=== PATIENT | female | born 1990 | race Caucasian/White ===

== ENCOUNTER 2016-08-09 18:46 | Emergency (ER) | payer OTHER ==
[~2016-08-09] VITALS: Ht 170.2 cm; Wt 86.0 kg
[~2016-08-09 18:46] MED LIST: ACET-1311 PO; METH4PAK4 PO; ONDA4TAB10 SL
[2016-08-09 18:54] VITALS: Ht 170.2 cm; Wt 86.0 kg
[2016-08-09] MEDS ORDERED: SODIUM CHLORIDE 0.9% 1000ML 1,000 ML IV STA (19:55)
[2016-08-09] MEDS ORDERED: ONDANSETRON 8 MG/54 ML D5W IV STA (20:05)
[2016-08-09] MEDS ORDERED: HYDROmorphone INJ 0.5 MG/0.5 ML SYR IV STA (20:05)
[2016-08-09] MEDS ORDERED: OPTIRAY 320 IV PRN (20:15)
[2016-08-09 20:21] LABS: BASO % 0.2 %; BASO ABS # 0.02 K/uL (0-0.2); COMPLETE YES; EOS % 0.6 %; HEMATOCRIT 43.2 % (37-47); IG% 0.2 %; LYMPH % 10.6 %; LYMPH ABS # 1.33 K/uL (1.2-3.4); MEAN CELL VOLUME 84.9 fL (80-100); MEAN CORPUSCULAR HEMOGLOBIN 29.7 pg (25-34); MEAN PLATELET VOLUME 9.1 fL (7.4-10.4); NEUT % 82.4 %; PLATELET COUNT 279 K/uL (130-400); RED BLOOD COUNT 5.09 M/uL (4.2-5.4); WHITE BLOOD COUNT 12.58 K/uL (4.8-10.8)
[2016-08-09 20:37] LABS: BUN/CREATININE RATIO 12.3 (10-20); CALCIUM 8.9 mg/dl (8.5-10.1); CREATININE 0.75 mg/dl (0.60-1.20); POTASSIUM 3.8 mmol/L (3.5-5.1)
[2016-08-09] MEDS ORDERED: FERR324T4 PO (20:53)
[2016-08-09] MEDS ORDERED: PRED20TA PO (21:53)
[2016-08-09] MEDS ORDERED: ONDANSETRON HOME PACK 4MG OD TAB PO ONE (22:00)
[2016-08-09 22:02] VITALS: BP 106/73; PULSE 75; TEMP 36.8; O2SAT 97
[2016-08-09 22:19] LABS: URINE APPEARANCE CLEAR (CLEAR); URINE BILIRUBIN NEG (NEG); URINE COLOR YELLOW; URINE EPITHELIAL CELL AUTO >30 /lpf (0-5); URINE NITRITE NEG (NEG); URINE SPECIFIC GRAVITY 1.025 (1.000-1.030); UROBILINOGEN NEG (NEG); ZZUR CULT IF INDIC CLEAN CATCH YES
[2016-08-09 22:26] LABS: MANUAL MICROSCOPIC REQUIRED? NO; REVIEW REQ? NO
--- NOTE | 2016-08-09 23:28 | EMERGENCY ROOM VISIT NOTE ---
History Report prepared by Allison: Amanda Medley Under the Supervision of: Dr. Thuan Patel M.D. First contact with patient: 19:53 Chief Complaint: GI ASSESSMENT Stated Complaint: CHRONS FLARE,VOMITING Nursing Triage Summary: pt reports hx of Crohns disease and " I am having a flare up" History of Present Illness The patient is a 25 year old female who presents to the Emergency Room with complaints of intermittent upper abdominal pain beginning today. She rates her pain as 9.5/10 in severity. The patient describes her pain as a stabbing sensation. She notes that for the past 7 years she has had Crohn's disease. Her symptoms are typical for when she experiences a flare up. The patient is also experiencing nausea and vomiting. She notes that she has been off medication for the past year. Pt denies LOC, headache, fevers, chills, diaphoresis, visual changes, neck pain, chest pain, breathing difficulties, back pain, melena, hematochezia, urinary symptoms, numbness, weakness, lymphadenopathy, rash, or other complaints. Source of History: patient Onset: today Position: abdomen (upper) Quality: stabbing Timing: intermittent Associated Symptoms: + nausea, + vomiting Note: Patient is experiencing a Crohn's disease flare up. Review of Systems See HPI for pertinent positives and negatives. A total of ten systems were reviewed and were otherwise negative. Past Medical & Surgical Medical Problems: (1) Constipation (2) Crohns disease Surgical Problems: (1) No history of previous surgery Family History No significant family history Social History Smoking Status: Never Smoker Alcohol Use: occasionally Marital Status: Occupation Status: employed Current/Historical Medications Scheduled Ferrous Sulfate (Ferrous Sulfate), Unknown Dose PO DAILY Prednisone (Prednisone), 0 PO DAILY Allergies Coded Allergies: No Known Allergies (Unverified , 08/09/16) Physical Exam Vital Signs Date Time Temp Pulse Resp B/P Pulse Ox O2 Delivery O2 Flow Rate FiO2 08/09/16 22:02 36.8 75 18 106/73 97 08/09/16 21:51 75 18 106/73 97 Room Air 08/09/16 21:03 73 08/09/16 20:21 83 18 115/72 97 Room Air 08/09/16 18:54 36.8 91 18 138/86 96 Room Air Physical Exam GENERAL: Awake, alert, well-appearing, in no distress HENT: Normocephalic, atraumatic. Oropharynx unremarkable. EYES: Normal conjunctiva. Sclera non-icteric. NECK: Supple. No nuchal rigidity. FROM. No JVD. RESPIRATORY: Clear to auscultation. CARDIAC: Regular rate, normal rhythm. Extremities warm and well perfused. Pulses equal. ABDOMEN: Soft, non-distended. Left upper and lower tenderness to palpation. No rebound or guarding. No masses. RECTAL: Deferred. MUSCULOSKELETAL: Chest examination reveals no tenderness. The back is symmetrical on inspection without obvious abnormality. There is no CVA tenderness to palpation. No joint edema. LOWER EXTREMITIES: Calves are equal size bilaterally and non-tender. No edema. No discoloration. NEURO: Normal sensorium. No sensory or motor deficits noted. SKIN: No rash or jaundice noted. Medical Decision & Procedures Laboratory Results 08/09/16 20:13 Red Blood Count 5.09, Mean Corpuscular Volume 84.9, Mean Corpuscular Hemoglobin 29.7, Mean Corpuscular Hemoglobin Concent 35.0, Mean Platelet Volume 9.1, Neutrophils (%) (Auto) 82.4, Lymphocytes (%) (Auto) 10.6, Monocytes (%) (Auto) 6.0, Eosinophils (%) (Auto) 0.6, Basophils (%) (Auto) 0.2, Neutrophils # (Auto) 10.37, Lymphocytes # (Auto) 1.33, Monocytes # (Auto) 0.76, Eosinophils # (Auto) 0.08, Basophils # (Auto) 0.02 08/09/16 20:13 Test 08/09/16 20:13 08/09/16 21:55 White Blood Count 12.58 K/uL (4.8-10.8) Red Blood Count 5.09 M/uL (4.2-5.4) Hemoglobin 15.1 g/dL (12.0-16.0) Hematocrit 43.2 % (37-47) Mean Corpuscular Volume 84.9 fL (80-100) Mean Corpuscular Hemoglobin 29.7 pg (25-34) Mean Corpuscular Hemoglobin Concent 35.0 g/dl (32-36) Platelet Count 279 K/uL (130-400) Mean Platelet Volume 9.1 fL (7.4-10.4) Neutrophils (%) (Auto) 82.4 % Lymphocytes (%) (Auto) 10.6 % Monocytes (%) (Auto) 6.0 % Eosinophils (%) (Auto) 0.6 % Basophils (%) (Auto) 0.2 % Neutrophils # (Auto) 10.37 K/uL (1.4-6.5) Lymphocytes # (Auto) 1.33 K/uL (1.2-3.4) Monocytes # (Auto) 0.76 K/uL (0.11-0.59) Eosinophils # (Auto) 0.08 K/uL (0-0.5) Basophils # (Auto) 0.02 K/uL (0-0.2) RDW Standard Deviation 41.0 fL (36.4-46.3) RDW Coefficient of Variation 13.2 % (11.5-14.5) Immature Granulocyte % (Auto) 0.2 % Immature Granulocyte # (Auto) 0.02 K/uL (0.00-0.02) Anion Gap 6.0 mmol/L (3-11) Est Creatinine Clear Calc Drug Dose 126.9 ml/min Estimated GFR () 126.6 Estimated GFR (Non- 109.2 BUN/Creatinine Ratio 12.3 (10-20) Calcium Level 8.9 mg/dl (8.5-10.1) Total Bilirubin 0.5 mg/dl (0.2-1) Direct Bilirubin 0.2 mg/dl (0-0.2) Aspartate Amino Transf (AST/SGOT) 15 U/L (15-37) Alanine Aminotransferase (ALT/SGPT) 20 U/L (12-78) Alkaline Phosphatase 58 U/L (45-117) Total Protein 7.8 gm/dl (6.4-8.2) Albumin 3.7 gm/dl (3.4-5.0) Lipase 232 U/L (73-393) Urine Color YELLOW Urine Appearance CLEAR (CLEAR) Urine pH 8.0 (4.5-7.5) Urine Specific [place] 1.025 (1.000-1.030) Urine Protein NEG (NEG) Urine Glucose (UA) NEG (NEG) Urine Ketones NEG (NEG) Urine Occult Blood NEG (NEG) Urine Nitrite NEG (NEG) Urine Bilirubin NEG (NEG) Urine Urobilinogen NEG (NEG) Urine Leukocyte Esterase TRACE (NEG) Urine WBC (Auto) 1-5 /hpf (0-5) Urine RBC (Auto) 0-4 /hpf (0-4) Urine Hyaline Casts (Auto) 1-5 /lpf (0-5) Urine Epithelial Cells (Auto) >30 /lpf (0-5) Urine Bacteria (Auto) 1+ (NEG) Urine Test NEG (NEG) Laboratory results reviewed by me Medications Administered Medications (Trade) Dose Ordered Sig/Marcelo Route Start Time Stop Time Status Last Admin Dose Admin Sodium Chloride (Nss 1000ml) 1,000 ml @ 999 mls/hr Q1H1M STAT IV 08/09/16 19:55 08/09/16 20:55 DC 08/09/16 20:16 999 MLS/HR Ondansetron HCl (Zofran 8mg Iv) 8 mg NOW STAT IV 08/09/16 20:05 08/09/16 20:07 DC 08/09/16 20:16 8 MG Hydromorphone HCl (Dilaudid Inj) 0.5 mg Q20M STAT IV 08/09/16 20:05 08/09/16 20:07 DC 08/09/16 20:16 0.5 MG Prednisone (PredniSONE TAB) 60 mg NOW STAT PO 08/09/16 21:44 08/09/16 21:45 DC 08/09/16 21:54 60 MG Ondansetron HCl (ZOFRAN ODT 4MG Home Pack) 1 homepack UD ONCE PO 08/09/16 22:00 08/09/16 22:01 DC 08/09/16 21:54 1 HOMEPACK ED Course 1994: Sodium Chloride 1,000 ml @ 999 mls/hr IV. 2002: The patient was evaluated in room B11. A complete history and physical exam was performed. 2004: Dilaudid Inj 0.5 mg IV, Zofran 8 mg IV. 2143: Prednisone Tab 60 mg PO. 2148: I reevaluated the patient. She would like nausea and Prednisone medication to go home with. She will follow up with her GI doctor in [place] tomorrow. I did discuss the risks and benefits of imaging, she does not want any done at this time. 2199: Zofran ODT 4 mg Home Pack 1 homepack PO. 2203: I reevaluated the patient. Discussed results and discharge instructions: She verbalized understanding and agreement. The patient is ready for discharge. Medical Decision Triage Nursing notes reviewed. The patient's presentation and history were concerning for abdominal pain. Etiologies such as inflammatory bowel disease, appendicitis, diverticulitis, obstruction, renal colic, PUD, biliary pathology, pancreatitis, mesenteric ischemia, aortic pathology, infections, genitourinary, UTI, perforated viscus, as well as others were entertained. The patient was evaluated. She has a history of inflammatory bowel disease. She notes having a flare. Record review indicates she was here February of last year for similar issues. The patient had blood work obtained. CT scan was ordered. The patient declined CT imaging stating that she has had multiple CT scans in the past and would like to avoid the radiation. She had a smoker presentation in February of last year and imaging was deferred for the same reason. The patient had a mild leukocytosis but this was less than prior. Chemistry panel, LFTs and lipase were unremarkable. Urine dip was negative. The patient is not . She was treated as above and felt somewhat better. She requested steroids and noted a prednisone taper helps her more than anything. She accepted some nausea medicine but did not want any narcotics stating that she has problems with constipation. Record review of the PD MP did not reveal any evidence of issues. The patient was offered consultation with gastroenterology but wants to follow-up with her own chief meteorologist. She was referred to [facility] gastroenterology on the last visit but declined that as well. She followed up with her GI doctor that's been treating her since diagnosis. The patient will contact the office tomorrow. I did provide her prednisone taper by prescription. Patient was fully aware of the risks of declining imaging and possible outcomes of other pathology mimicking her inflammatory bowel disease.I gave my usual and customary discussion regarding this issue. By the evaluation outlined above other emergent etiologies such as those listed in the differential, as well as others, were deemed relatively unlikely. The patient and significant other were informed about the findings as listed above. All questions were answered and they were pleased with the treatment. Return instructions were outlined and the patient was discharged in stable condition. The patient was referred to her GI doctor for follow-up YUNG for a recheck of the current condition. The chart was completed utilizing [employer] voice recognition software. Grammatical errors, random word insertions, pronoun errors, and incomplete sentences are an occasional consequence of this system due to software limitations, ambient noise, and hardware issues. Any formal questions or concerns about the content, text, or information contained within the body of this dictation should be directly addressed to the physician for clarification. [place] Drug Monitoring Program Search Results: patient reviewed within database, no issues identified Impression Primary Impression: Generalized abdominal pain Additional Impression: History of Crohn's disease Scribe Attestation The scribe's documentation has been prepared under my direction and personally reviewed by me in its entirety. I confirm that the note above accurately reflects all work, treatment, procedures, and medical decision making performed by me. Departure Information Dispostion Home / Self-Care Prescriptions Prednisone (Prednisone) 20 Mg Tab 0 PO DAILY, #15 TAB 3 DAILY FOR 3 DAYS, THEN 2 DAILY FOR 2 DAYS, THEN 1 DAILY FOR 1 DAY, THEN 1/2 FOR 2 DAYS. Prov: Thuan Patel MD 08/09/16 Referrals No Doctor, Assigned (PCP) Forms HOME CARE DOCUMENTATION FORM, IMPORTANT VISIT INFORMATION Patient Instructions My [facility] Additional Instructions ABDOMINAL PAIN INSTRUCTIONS: DO NOT drive, drink alcohol, operate machinery, or perform dangerous activities today. You were given medications in the ER that can affect your ability to safely function or operate a vehicle. Prednisone 20 mg: Take 3 pills a day for 3 days, then take 2 pills a day for 2 days, then take one pill a day for one day, then take one half pill for two days. Acetaminophen(Tylenol) may be used for fever or pain. Use 1000mg every six hours as needed. Avoid using more than 4000mg in a 24 hour period. Zofran 4 mg oral dissolving tablets: take one tablet and allow it to melt in your mouth every 4 hours as needed for nausea. Rest and drink plenty of fluids as tolerated. Slow sips of water or sports drinks are recommended instead of large amounts all at once. Continue current medications. Once your stomach is settled start with a clear liquid diet (jello, soup broth, etc.) and then advance as tolerated. You should avoid full, heavy meals for about 24 hrs from the time your symptoms resolved. Return to the ER immediately for worsening or persistent abdominal pain, vomiting, fevers, chest pains, difficulty breathing, black or bloody stools, worsening of your condition, or as needed. Follow up with your GI doctor tomorrow for a recheck of your current condition. Problem Qualifiers
[2016-10-21] MEDS ORDERED: BUDE3CAP14 PO (15:29)
[2016-11-26] MEDS ORDERED: PRED10TA PO (13:53)
[2016-11-26] MEDS ORDERED: LINA72CA PO (14:16)
== END 2016-08-09 22:02 | disposition home or self-care (01) ==
LOC: C.EDB 18:48
DX: R10.84 Generalized abdominal pain (principal); K50.90 Crohn's disease, unspecified, without complications; Z79.899 Other long term (current) drug therapy

== ENCOUNTER → 2016-10-22 | Day surgery (SDC) | payer OTHER ==
[2016-10-21 15:31] VITALS: BMI 29.0
[~2016-10-22] VITALS: Ht 170.2 cm; Wt 85.9 kg
[~2016-10-22] MED LIST changes: -ACET-1311 PO; +BUDE1CAP6 PO; +LIDOCAINE HCL 2% 2 ML VIAL (20MG/ML) ONE; +LINA72CA PO; -METH4PAK4 PO; +MIDAZOLAM HCL 1 MG/ML 2ML VIAL ONE; -ONDA4TAB10 SL; +ONDANSETRON INJ 2 MG/ML 2 ML VIAL ONE; +PRED10TA PO; +PROPOFOL IV EMULSION 10 MG/ML 20 ML VIAL IV ONE; +SODIUM CHLORIDE 0.9% 500ML 500 ML IV ONE
--- NOTE | 2016-10-22 12:50 | Endo History and Physical ---
History & Physical Date of Service: October 22, 2016. Chief Complaint: Crohn's Disease Referring Physician: SHELLEY Anthony History of Present Illness 26 yo female who presents for colonoscopy secondary to Crohn's disease. Past Surgical History Hx Cardiac Surgery: No Hx Internal Defibrillator: No Hx Pacemaker: No Hx Abdominal Surgery: Yes (OVARIAN CYSTECTOMY) Hx of Implantable Prosthesis: No Hx Post-Op Nausea and Vomiting: No Hx Cancer Surgery: No Hx Thoracic Surgery: No Hx Orthopedic: No Hx Urinary Tract Surgery: No Family History Colon CA Social History Smoking Status: Never Smoker Hx Substance Use: No Hx Alcohol Use: No Allergies Coded Allergies: No Known Allergies (Unverified , 10/21/16) Current Medications Reported Home Medications Medications Dose Route/Sig Max Daily Dose Days Date Category Entocort Ec (Budesonide) 3 Mg Cap 3 Cap PO TID 10/21/16 Reported Vital Signs Weight (Kilograms): 85.91 Height (Feet): 5 Height (Inches): 7 Physical Exam General Appearance: WD/WN, no apparent distress Respiratory/Chest: Auscultation: breath sounds normal Cardiovascular: Heart Auscultation: RRR Abdomen: Bowel Sounds: normal Inspection & Palpation: soft, non-distended, no tenderness, guarding & rebound Assessment and Plan Assessment: 26 yo female who presents for colonoscopy secondary to Crohn's disease. Plan: Proceed with colonoscopy.
[2016-10-22 12:55] VITALS: Ht 170.2 cm; Wt 85.9 kg
[2016-10-22 13:03] VITALS: TEMP 36.5
--- NOTE | 2016-10-22 14:04 | Discharge Instructions ---
Endoscopy Patient Instructions Date / Procedure(s) Performed October 22, 2016. Colonoscopy Allergy Information Coded Allergies: No Known Allergies (Verified , 10/22/16) Discharge Date / Findings October 22, 2016. Crohn's Ileitis s/p biopsies Random colon biopsies Internal hemorrhoids Medication Instructions OK to resume all medications today as prescribed Reported Home Medications Medications Dose Route/Sig Max Daily Dose Days Date Category Entocort Ec (Budesonide) 3 Mg Cap 3 Cap PO TID 10/21/16 Reported Provider Instructions Activity Restrictions - No exercising or heavy lifting for 24 hours. - Do not drink alcohol the day of the procedure. - Do not drive a car or operate machinery until the day after the procedure. - Do not make any important decisions or sign important papers in 24 hours after the procedure. Following Day: - Return to full activity which may include returning to work/school. Diet Start your diet with liquids and light foods (jello, soup, juice, toast). Then eat your usual diet if not nauseated. Treatment For Common After Affects For mild abdominal pain, bloating, or excessive gas: - Rest - Eat lightly - Lie on right side Follow-Up Information Follow-up with NONE as scheduled Anesthesia Information What You Should Know You have had a procedure that required some medicine to reduce anxiety and discomfort. This treatment is called moderate sedation. After receiving the treatment, you may be sleepy, but you will be able to breathe on your own. The effects of the treatment may last for several hours. Follow these instructions along with Activity/Diet recommendations noted above: * Do NOT do anything where dizziness or clumsiness would be dangerous. * Rest quietly at home today, then you can be up and about tomorrow. * Have a responsible person stay with you the rest of today. * You may have had an I.V. today. If so, you may take the dressing off later today. Recommendations Call your doctor if: * Trouble breathing * Continuous vomiting for more than 24 hours * Temperature above 101 degrees * Severe abdominal pain or bloating * Pain not relieved by pain medicine ordered * There is increased drainage or redness from any incision * A large amount of rectal bleeding greater than 2-3 tablespoons. (If you had a polyp/s removed or have hemorrhoids, a small amount of blood - from the rectum is to be expected.) * You have any unanswered questions or concerns. IN THE EVENT OF A SERIOUS EMERGENCY, GO TO THE NEAREST EMERGENCY ROOM Your discharge instructions were prepared by provider Eugenio Mckenna. Patient Instructions Signature Page Meka Wray Patient (or Guardian) Signature/Date: I have read and understand the instructions given to me by my caregivers. Caregiver/RN/Doctor Signature/Date: The above-named patient and/or guardian has received patient instructions on this date. + Original Patient Signature Page (only) stays with chart. Please make copy for patient.
--- NOTE | 2016-10-22 14:13 | GI REPORT ---
Procedure Date: 10/22/2016 1:23 PM Procedure: Colonoscopy Indications: Disease activity assessment of Crohn's disease of the small bowel Medicines: Monitored Anesthesia Care Complications: No immediate complications. Estimated Blood Loss: Estimated blood loss: none. Procedure: Pre-Anesthesia Assessment: - Prior to the procedure, a History and Physical was performed, and patient medications and allergies were reviewed. The patient's tolerance of previous anesthesia was also reviewed. The risks and benefits of the procedure and the sedation options and risks were discussed with the patient. All questions were answered, and informed consent was obtained. Prior Anticoagulants: The patient has taken no previous anticoagulant or antiplatelet agents. ASA Grade Assessment: II - A patient with mild systemic disease. After reviewing the risks and benefits, the patient was deemed in satisfactory condition to undergo the procedure. After I obtained informed consent, the scope was passed under direct vision. Throughout the procedure, the patient's blood pressure, pulse, and oxygen saturations were monitored continuously. The scope was introduced through the anus and advanced to the terminal ileum. The colonoscopy was performed without difficulty. The patient tolerated the procedure well. The quality of the bowel preparation was good. The terminal ileum, ileocecal valve, appendiceal orifice, and rectum were photographed. Findings: Localized inflammation, graded as Rutgeerts Score i2 (more than five aphthous lesions with normal intervening mucosa or skip areas of larger lesions or lesions confined to the ileocolonic anastomosis) and characterized by aphthous ulcerations was found in the terminal ileum. Biopsies were taken with a cold forceps for histology. Several random biopsies were obtained with cold forceps for histology in the entire colon. Non-bleeding internal hemorrhoids were found during retroflexion. The hemorrhoids were small. Impression: - Crohn's disease with ileitis. Biopsied. - Non-bleeding internal hemorrhoids. - Several random biopsies were obtained in the entire colon. Recommendation: - Resume previous diet. - Continue present medications. - Repeat colonoscopy for surveillance based on pathology results. - Return to my office as previously scheduled. Eugenio Mckenna DO 10/22/2016 2:12:27 PM This report has been signed electronically. Note Initiated On: 10/22/2016 1:23 PM I attest to the content of the Intraoperative Record and orders documented therein, exceptions below
--- NOTE | 2016-10-22 14:35 | Anesthesiology Progress Note ---
Anesthesia Post Op Note Date & Time October 22, 2016 at 14:35 Vital Signs Pain Intensity: 0 Vital Signs Past 12 Hours Date Time Temp Pulse Resp B/P Pulse Ox O2 Delivery O2 Flow Rate FiO2 10/22/16 14:24 88 20 103/66 98 Room Air 10/22/16 14:09 87 20 100/63 99 Room Air 10/22/16 13:03 36.5 89 20 107/59 98 Room Air Notes Mental Status: alert / awake / arousable, participated in evaluation Pt Amnestic to Procedure: Yes Nausea / Vomiting: adequately controlled Pain: adequately controlled Airway Patency, RR, SpO2: stable & adequate BP & HR: stable & adequate Hydration State: stable & adequate Anesthetic Complications: no major complications apparent Pt doing very well.
[2016-10-22 14:39] VITALS: BP 111/68; PULSE 82; O2SAT 98
== END | disposition home or self-care (01) ==
LOC: C.GI 12:35
PROVIDERS: ATTEND Internal Medicine
DX: K50.00 Crohn's disease of small intestine without complications (principal); K64.8 Other hemorrhoids; Z98.0 Intestinal bypass and anastomosis status; Z80.0 Family history of malignant neoplasm of digestive organs; Z79.899 Other long term (current) drug therapy

== ENCOUNTER → 2016-11-02 | Outpatient (CLI) | payer OTHER ==
[~2016-11-02] MED LIST changes: -LIDOCAINE HCL 2% 2 ML VIAL (20MG/ML) ONE; -MIDAZOLAM HCL 1 MG/ML 2ML VIAL ONE; -ONDANSETRON INJ 2 MG/ML 2 ML VIAL ONE; -PROPOFOL IV EMULSION 10 MG/ML 20 ML VIAL IV ONE; -SODIUM CHLORIDE 0.9% 500ML 500 ML IV ONE
[2016-11-02 13:14] LABS: BASO % 0.8 %; BASO ABS # 0.05 K/uL (0-0.2); COMPLETE YES; EOS % 1.4 %; HEMATOCRIT 40.7 % (37-47); IG% 0.2 %; LYMPH % 27.9 %; LYMPH ABS # 1.77 K/uL (1.2-3.4); MEAN CORPUSCULAR HEMOGLOBIN 29.9 pg (25-34); MEAN CORPUSCULAR HGB CONC 34.4 g/dl (32-36); MEAN PLATELET VOLUME 9.4 fL (7.4-10.4); MONO % 5.7 %; PLATELET COUNT 291 K/uL (130-400); RED BLOOD COUNT 4.68 M/uL (4.2-5.4); WHITE BLOOD COUNT 6.35 K/uL (4.8-10.8)
[2016-11-02 14:24] LABS: ALB/GLOB RATIO 1.1 (0.9-2); ALKALINE PHOSPHATASE 55 U/L (45-117); ALT/SGPT 19 U/L (12-78); AST/SGOT 10 U/L (15-37); BLOOD UREA NITROGEN 8 mg/dl (7-18); BUN/CREATININE RATIO 10.1 (10-20); CALCIUM 8.7 mg/dl (8.5-10.1); CARBON DIOXIDE 25 mmol/L (21-32); CHLORIDE 109 mmol/L (98-107); CREATININE 0.76 mg/dl (0.60-1.20); GLUCOSE 92 mg/dl (70-99); POTASSIUM 4.2 mmol/L (3.5-5.1); SODIUM 141 mmol/L (136-145)
[2016-11-02 14:36] LABS: C-REACTIVE PROTEIN < 0.29 mg/dl (0-0.29)
[2016-11-04 15:56] LABS: QUANTIF TB AG-NIL 0.11 IU/ML; QUANTIFERON NIL 0.12 IU/ML
== END | disposition home or self-care (01) ==
LOC: C.LAB1850 11:39
PROVIDERS: ATTEND Registered Nurse
DX: K50.00 Crohn's disease of small intestine without complications (principal)

== ENCOUNTER 2016-11-03 04:14 | Emergency (ER) | payer OTHER ==
[~2016-11-03] VITALS: Ht 170.2 cm; Wt 87.6 kg
[~2016-11-03 04:14] MED LIST changes: -LINA72CA PO; -PRED10TA PO
[2016-11-03 04:19] VITALS: Ht 170.2 cm; Wt 87.6 kg
[2016-11-03] MEDS ORDERED: HYDROmorphone INJ 0.5 MG/0.5 ML SYR IV STA (04:41)
[2016-11-03] MEDS ORDERED: ONDANSETRON INJ 2 MG/ML 2 ML VIAL IV STA (04:41)
[2016-11-03] MEDS ORDERED: METHYLPREDNISOLONE 125 MG VIAL IV STA (04:41)
[2016-11-03] MEDS ORDERED: SODIUM CHLORIDE 0.9% 1000ML 1,000 ML IV ONE (04:45)
[2016-11-03 05:05] LABS: BASO % 0.4 %; BASO ABS # 0.04 K/uL (0-0.2); COMPLETE YES; EOS % 1.8 %; HEMATOCRIT 42.7 % (37-47); IG% 0.1 %; LYMPH % 24.7 %; LYMPH ABS # 2.21 K/uL (1.2-3.4); MEAN CELL VOLUME 86.3 fL (80-100); MEAN CORPUSCULAR HEMOGLOBIN 28.7 pg (25-34); MEAN CORPUSCULAR HGB CONC 33.3 g/dl (32-36); MEAN PLATELET VOLUME 8.8 fL (7.4-10.4); MONO % 6.3 %; NEUT % 66.7 %; PLATELET COUNT 292 K/uL (130-400); RED BLOOD COUNT 4.95 M/uL (4.2-5.4); WHITE BLOOD COUNT 8.95 K/uL (4.8-10.8)
[2016-11-03 05:09] LABS: MANUAL MICROSCOPIC REQUIRED? NO; REVIEW REQ? NO; URINE APPEARANCE TURBID (CLEAR); URINE BILIRUBIN NEG (NEG); URINE COLOR YELLOW; URINE EPITHELIAL CELL AUTO >30 /lpf (0-5); URINE NITRITE NEG (NEG); URINE SPECIFIC GRAVITY 1.023 (1.000-1.030); UROBILINOGEN NEG (NEG); ZZUR CULT IF INDIC CLEAN CATCH NO
[2016-11-03 05:38] LABS: BUN/CREATININE RATIO 16.5 (10-20); CALCIUM 8.8 mg/dl (8.5-10.1); CREATININE 0.81 mg/dl (0.60-1.20); POTASSIUM 3.8 mmol/L (3.5-5.1)
[2016-11-03 06:27] VITALS: BP 104/67; PULSE 68; TEMP 36.5; O2SAT 97
--- NOTE | 2016-11-04 03:17 | EMERGENCY ROOM VISIT NOTE ---
History First contact with patient: 04:23 Chief Complaint: ABDOMINAL PAIN Stated Complaint: CHRONS FLARE UP/STOMACH PAIN Nursing Triage Summary: Pt started to c/o increased abdominal pain around 0100, pt thinks it is her crohns flare up History of Present Illness The patient is a 26 year old female who presents to the Emergency Room with complaints of epigastric abdominal pain worsening over the past 3 hours. The patient has a long-standing history of Crohn's disease, and states this feels like the start of a normal flareup. She states that she generally has epigastric pain, which increases to more generalized pain, and then with persistent nausea and vomiting. The patient recently established with gastroenterology locally, and had a colonoscopy by Dr. triplett, several days ago. This did show some skip lesions and some inflammation. The patient states that she was feeling well following the procedure, and now has developed symptoms. She is not currently being treated with immunosuppressants. She does have budesonide, but does not take this on a regular basis. She has not had fever or chills. No diarrhea or bloody stool. She denies chance of . She rates her current discomfort a 7/10. She has not taken anything over-the- counter for her symptoms. She tries to avoid narcotics as they cause her constipation. Review of Systems More than 10 systems were reviewed and otherwise negative with the exception of history of present illness. Past Medical/Surgical History Medical Problems: (1) Constipation (2) Crohns disease Surgical Problems: (1) No history of previous surgery Family History No significant family history Social History Smoking Status: Never Smoker Alcohol Use: occasionally Marital Status: Occupation Status: employed Current/Historical Medications Scheduled Budesonide (Entocort Ec), 3 CAP PO TID Allergies Coded Allergies: No Known Allergies (Verified , 11/03/16) Physical Exam Vital Signs Date Time Temp Pulse Resp B/P Pulse Ox O2 Delivery O2 Flow Rate FiO2 11/03/16 06:27 36.5 68 16 104/67 97 11/03/16 04:19 36.5 76 16 122/80 95 Room Air Pain Rating (0-10): 2.0 Physical Exam VITALS: Vitals are noted on the nurse's note and reviewed by myself. Vital signs stable. GENERAL: Well-developed, well-nourished, white female, who is in no acute distress and resting comfortably. Patient is cooperative with the examination. HEAD: Normocephalic atraumatic. HEART: Regular rate and rhythm without murmurs gallops or rubs. LUNGS: Clear to auscultation bilaterally without wheezes, rales or rhonchi. No retractions or accessory muscle use. ABDOMEN: Positive normal bowel sounds x 4. Soft, nontender, without masses or organomegaly. No guarding or rebound tenderness. MUSCULOSKELETAL: No muscle atrophy, erythema, or edema noted. Full range of motion without joint tenderness in all extremities. Medical Decision & Procedures Laboratory Results 11/03/16 04:50 Red Blood Count 4.95, Mean Corpuscular Volume 86.3, Mean Corpuscular Hemoglobin 28.7, Mean Corpuscular Hemoglobin Concent 33.3, Mean Platelet Volume 8.8, Neutrophils (%) (Auto) 66.7, Lymphocytes (%) (Auto) 24.7, Monocytes (%) (Auto) 6.3, Eosinophils (%) (Auto) 1.8, Basophils (%) (Auto) 0.4, Neutrophils # (Auto) 5.97, Lymphocytes # (Auto) 2.21, Monocytes # (Auto) 0.56, Eosinophils # (Auto) 0.16, Basophils # (Auto) 0.04 11/03/16 04:50 Test 11/03/16 04:50 11/03/16 05:08 White Blood Count 8.95 K/uL (4.8-10.8) Red Blood Count 4.95 M/uL (4.2-5.4) Hemoglobin 14.2 g/dL (12.0-16.0) Hematocrit 42.7 % (37-47) Mean Corpuscular Volume 86.3 fL (80-100) Mean Corpuscular Hemoglobin 28.7 pg (25-34) Mean Corpuscular Hemoglobin Concent 33.3 g/dl (32-36) Platelet Count 292 K/uL (130-400) Mean Platelet Volume 8.8 fL (7.4-10.4) Neutrophils (%) (Auto) 66.7 % Lymphocytes (%) (Auto) 24.7 % Monocytes (%) (Auto) 6.3 % Eosinophils (%) (Auto) 1.8 % Basophils (%) (Auto) 0.4 % Neutrophils # (Auto) 5.97 K/uL (1.4-6.5) Lymphocytes # (Auto) 2.21 K/uL (1.2-3.4) Monocytes # (Auto) 0.56 K/uL (0.11-0.59) Eosinophils # (Auto) 0.16 K/uL (0-0.5) Basophils # (Auto) 0.04 K/uL (0-0.2) RDW Standard Deviation 40.8 fL (36.4-46.3) RDW Coefficient of Variation 12.9 % (11.5-14.5) Immature Granulocyte % (Auto) 0.1 % Immature Granulocyte # (Auto) 0.01 K/uL (0.00-0.02) Urine Color YELLOW Urine Appearance TURBID (CLEAR) Urine pH 7.0 (4.5-7.5) Urine Specific Burnett 1.023 (1.000-1.030) Urine Protein NEG (NEG) Urine Glucose (UA) NEG (NEG) Urine Ketones NEG (NEG) Urine Occult Blood NEG (NEG) Urine Nitrite NEG (NEG) Urine Bilirubin NEG (NEG) Urine Urobilinogen NEG (NEG) Urine Leukocyte Esterase NEG (NEG) Urine WBC (Auto) 1-5 /hpf (0-5) Urine RBC (Auto) 0-4 /hpf (0-4) Urine Hyaline Casts (Auto) 1-5 /lpf (0-5) Urine Epithelial Cells (Auto) >30 /lpf (0-5) Urine Bacteria (Auto) NEG (NEG) Anion Gap 5.0 mmol/L (3-11) Est Creatinine Clear Calc Drug Dose 117.5 ml/min Estimated GFR () 114.6 Estimated GFR (Non- 98.8 BUN/Creatinine Ratio 16.5 (10-20) Calcium Level 8.8 mg/dl (8.5-10.1) Total Bilirubin 0.4 mg/dl (0.2-1) Aspartate Amino Transf (AST/SGOT) 12 U/L (15-37) Alanine Aminotransferase (ALT/SGPT) 20 U/L (12-78) Alkaline Phosphatase 59 U/L (45-117) Total Protein 7.8 gm/dl (6.4-8.2) Albumin 3.8 gm/dl (3.4-5.0) Globulin 4.0 gm/dl (2.5-4.0) Albumin/Globulin Ratio 1.0 (0.9-2) Lipase 236 U/L (73-393) Urine Test NEG (NEG) Medications Administered Medications (Trade) Dose Ordered Sig/Marcelo Route Start Time Stop Time Status Last Admin Dose Admin Sodium Chloride (Nss 1000ml) 1,000 ml @ 999 mls/hr Q1H1M ONCE IV 11/03/16 04:45 11/03/16 05:45 DC 11/03/16 05:04 999 MLS/HR Ondansetron HCl (Zofran Inj) 4 mg NOW STAT IV 11/03/16 04:41 11/03/16 04:45 DC 11/03/16 05:03 4 MG Methylprednisolone Sodium Succinate (Solu-Medrol IV) 125 mg NOW STAT IV 11/03/16 04:41 11/03/16 04:45 DC 11/03/16 05:03 125 MG Hydromorphone HCl (Dilaudid Inj) 0.5 mg NOW STAT IV 11/03/16 04:41 11/03/16 04:45 DC 11/03/16 05:04 0.5 MG ED Course Physical exam and history were performed. Nursing notes and EMR were reviewed. Patient appears to have epigastric abdominal discomfort with a history of Crohn' s disease. She states this feels like her normal flareups. I discussed options of care with the patient, and we elected to defer CT imaging pending lab results. Evidently when she lived in [place] she would be provided steroids and pain medication with her flareups, and this would abort them. IV access was established and labs were obtained. The patient was hydrated and medicated as above. The patient's blood work is as above and was reviewed. She does not have a significantly elevated white blood cell count, gross anemia, bandemia, or significant electrolyte imbalance. Lipase and transaminases are nondiagnostic. Urine is without evidence of infection. Upon multiple re-evaluations the patient was feeling much improved. She was able to rest comfortably in her ER bed, and repeat serial abdominal exam does not show worsening of symptoms. Essentially normal blood work and significant improved discomfort I do not feel CT scan is necessary at this time. The patient agrees, and feels this is reasonable. Overall she does seem stable for discharge home. 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 The patient was otherwise certainly invited to the emergency department with any new, worsening , or concerning symptoms. The chart was completed utilizing [employer] Speech Voice Recognition Software. Grammatical errors, random word insertions, pronoun errors, and incomplete sentences are an occasional consequence of this system due to software limitations, ambient noise, and hardware issues. Any formal questions or concerns about the content, text, or information contained within the body of this dictation should be directly addressed to the provider for clarification. . Medical Decision Differential diagnosis: Etiologies such as appendicitis, diverticulitis, PUD, biliary pathology, UTI, pancreatitis, obstruction, mesenteric ischemia, aortic pathology, infections, inflammatory bowel disease, renal colic, as well as others were entertained. Impression Primary Impression: Exacerbation of Crohn's disease Departure Information Dispostion Home / Self-Care Condition GOOD Referrals No Doctor, Assigned (PCP) Eugenio Triplett D.O. Forms HOME CARE DOCUMENTATION FORM, IMPORTANT VISIT INFORMATION Patient Instructions My [facility] Additional Instructions You were seen and evaluated today on an emergency basis only. This is not a substitute for, or an effort to provide, complete comprehensive medical care. It is not possible to recognize and treat all injuries or illnesses in a single emergency department visit. For this reason it is recommended that you followup with Gastroenterology, Dr. Triplett's office for ongoing care and evaluation. Call this morning and let them know you were seen in the ER to help facilitate care. Continue your medications as prescribed at home. You are welcome to return to the emergency department anytime with new, worsening, or concerning symptoms.
[2016-11-26] MEDS ORDERED: PRED10TA PO (13:53)
[2016-11-26] MEDS ORDERED: LINA72CA PO (14:16)
== END 2016-11-03 06:27 | disposition home or self-care (01) ==
LOC: C.EDB 04:15 → C.EDA 06:27
DX: K50.90 Crohn's disease, unspecified, without complications (principal); Z79.899 Other long term (current) drug therapy

== ENCOUNTER 2016-11-25 05:01 | Emergency (ER) | payer OTHER ==
[~2016-11-25] VITALS: Ht 170.2 cm; Wt 85.5 kg
[2016-11-25 05:07] VITALS: TEMP 36.5; Ht 170.2 cm; Wt 85.5 kg
[2016-11-25] MEDS ORDERED: HYDROmorphone INJ 1 MG/ML SYR IV STA (05:21)
[2016-11-25] MEDS ORDERED: METHYLPREDNISOLONE 125 MG VIAL IV STA (05:21)
[2016-11-25] MEDS ORDERED: ONDANSETRON INJ 2 MG/ML 2 ML VIAL IV STA (05:21)
[2016-11-25] MEDS ORDERED: SODIUM CHLORIDE 0.9% 1000ML 1,000 ML IV STA (05:22)
--- NOTE | 2016-11-25 05:28 | EMERGENCY ROOM VISIT NOTE ---
History Report prepared by Allison: Dario Barrios Under the Supervision of: Dr. Albania Graham D.O. First contact with patient: 05:14 Chief Complaint: GI ASSESSMENT Stated Complaint: CROHNS FLARE UP Nursing Triage Summary: pt states "I am having a chrons flare up." c/o abd pain, nausea and constipation. LBM was "a few days ago." History of Present Illness The patient is a 26 year old female who presents to the Emergency Room with complaints of persistent nausea, vomiting, and diffuse abdominal pain starting last night. The patient had 2 vomiting episodes at home. She also complains of constipation. She reports worsening symptoms after taking a laxative. She has a history of Crohn's exacerbation. She recently had a colonoscopy which showed her Crohn's to be active. She states that she has trouble managing her Crohn's due to issues with diet and eating spicy foods. 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 She denies any history of surgeries. She denies fevers, chills, or any other complaints. Source of History: patient Onset: last night Position: abdomen (diffuse) Quality: other (nausea, vomiting) Timing: other (persistent) Modifying Factors (Worsening): other (after taking a laxative) Review of Systems See HPI for pertinent positives & negatives. A total of 10 systems reviewed and were otherwise negative. Past Medical & Surgical Medical Problems: (1) Constipation (2) Crohns disease Surgical Problems: (1) No history of previous surgery Family History No significant family history Social History Smoking Status: Never Smoker Alcohol Use: occasionally Marital Status: Occupation Status: employed Current/Historical Medications Scheduled Budesonide (Entocort Ec), 3 CAP PO TID Allergies Coded Allergies: No Known Allergies (Verified , 11/03/16) Physical Exam Vital Signs Date Time Temp Pulse Resp B/P (MAP) Pulse Ox O2 Delivery O2 Flow Rate FiO2 11/25/16 06:15 70 16 107/61 99 Room Air 11/25/16 05:33 69 16 113/74 100 Room Air 11/25/16 05:07 36.5 95 20 133/91 97 Room Air Physical Exam General: During my exam she became significantly nauseated and began to dry heave. HEENT: Head - normocephalic and atraumatic Pupils are equal, round, and reactive to light. Extraocular eye muscles are intact, and sclera are anicteric. Nose - moist nasal mucosa without discharge. Mouth - moist buccal mucosa. Oropharynx is nonerythematous and there is no tonsillar exudate or edema noted. Neck: Supple; no JVD, nuchal rigidity, cervical lymphadenopathy. Heart: Regular rate and rhythm. There is a normal S1 and S2 with no murmurs, clicks, or gallops appreciated. Lungs: Clear to auscultation bilaterally with no wheezes, rales, or rhonchi. Abdomen: Soft, diffusely tender with palpation, distended, with good bowel sounds. There are no palpable pulsatile masses or hepatosplenomegaly. There is no guarding, rigidity, or rebound noted. Extremities: No evidence of cyanosis, clubbing, or edema. There are easily palpable peripheral pulses. Skin: warm and dry with good turgor and no rashes. Medical Decision & Procedures Laboratory Results 11/25/16 05:27 Red Blood Count 5.35, Mean Corpuscular Volume 86.9, Mean Corpuscular Hemoglobin 29.5, Mean Corpuscular Hemoglobin Concent 34.0, Mean Platelet Volume 9.0, Neutrophils (%) (Auto) 75.7, Lymphocytes (%) (Auto) 15.8, Monocytes (%) (Auto) 6.5, Eosinophils (%) (Auto) 1.3, Basophils (%) (Auto) 0.4, Neutrophils # (Auto) 10.21, Lymphocytes # (Auto) 2.13, Monocytes # (Auto) 0.87, Eosinophils # (Auto) 0.18, Basophils # (Auto) 0.05 11/25/16 05:27 Test 11/25/16 05:27 White Blood Count 13.48 K/uL (4.8-10.8) Red Blood Count 5.35 M/uL (4.2-5.4) Hemoglobin 15.8 g/dL (12.0-16.0) Hematocrit 46.5 % (37-47) Mean Corpuscular Volume 86.9 fL (80-100) Mean Corpuscular Hemoglobin 29.5 pg (25-34) Mean Corpuscular Hemoglobin Concent 34.0 g/dl (32-36) Platelet Count 319 K/uL (130-400) Mean Platelet Volume 9.0 fL (7.4-10.4) Neutrophils (%) (Auto) 75.7 % Lymphocytes (%) (Auto) 15.8 % Monocytes (%) (Auto) 6.5 % Eosinophils (%) (Auto) 1.3 % Basophils (%) (Auto) 0.4 % Neutrophils # (Auto) 10.21 K/uL (1.4-6.5) Lymphocytes # (Auto) 2.13 K/uL (1.2-3.4) Monocytes # (Auto) 0.87 K/uL (0.11-0.59) Eosinophils # (Auto) 0.18 K/uL (0-0.5) Basophils # (Auto) 0.05 K/uL (0-0.2) RDW Standard Deviation 40.8 fL (36.4-46.3) RDW Coefficient of Variation 12.7 % (11.5-14.5) Immature Granulocyte % (Auto) 0.3 % Immature Granulocyte # (Auto) 0.04 K/uL (0.00-0.02) Anion Gap 6.0 mmol/L (3-11) Est Creatinine Clear Calc Drug Dose 99.1 ml/min Estimated GFR () 94.5 Estimated GFR (Non- 81.5 BUN/Creatinine Ratio 13.4 (10-20) Calcium Level 9.1 mg/dl (8.5-10.1) Total Bilirubin 0.5 mg/dl (0.2-1) Aspartate Amino Transf (AST/SGOT) 15 U/L (15-37) Alanine Aminotransferase (ALT/SGPT) 21 U/L (12-78) Alkaline Phosphatase 67 U/L (45-117) Total Protein 8.6 gm/dl (6.4-8.2) Albumin 4.3 gm/dl (3.4-5.0) Globulin 4.3 gm/dl (2.5-4.0) Albumin/Globulin Ratio 1.0 (0.9-2) Laboratory results per my review. Medications Administered Medications (Trade) Dose Ordered Sig/Marcelo Route Start Time Stop Time Status Last Admin Dose Admin Ondansetron HCl (Zofran Inj) 4 mg NOW STAT IV 11/25/16 05:21 11/25/16 05:23 DC 11/25/16 05:28 4 MG Hydromorphone HCl (Dilaudid Inj) 1 mg NOW STAT IV 11/25/16 05:21 11/25/16 05:23 DC 11/25/16 05:29 1 MG Methylprednisolone Sodium Succinate (Solu-Medrol IV) 125 mg NOW STAT IV 11/25/16 05:21 11/25/16 05:23 DC 11/25/16 05:30 125 MG Sodium Chloride 1,000 ml @ 999 mls/hr Q1H1M STAT IV 11/25/16 05:22 11/25/16 06:22 DC 11/25/16 05:29 999 MLS/HR Procedure Solu-Medrol IV 12 mg IV, Dilaudid Inj 1 mg IV, Zofran Inj 4 mg IV, Sodium Chloride 1000 ml @ 999 mls/hr IV ED Course 0514: Past medical records reviewed. The patient was evaluated in room A04B. A complete history and physical exam was performed. An IV lock was initiated and labs are drawn as above. 0521: Solu-Medrol IV 12 mg IV, Dilaudid Inj 1 mg IV, Zofran Inj 4 mg IV 0522: Sodium Chloride 1000 ml @ 999 mls/hr IV 1612: Upon reevaluation, the patient is feeling much better. I discussed findings and results with her. She verbalized agreement of the treatment plan. She was discharged home. Medical Decision The patient presents to the Emergency Room with complaints of nausea, vomiting, and diffuse abdominal pain. Differential diagnosis includes but is not limited to gastroenteritis, Crohn's flare, small bowel obstruction, perforated bowel. Her labs showed white blood cell count of 13.4, stable H&H, normal platelet, glucose of 105, LFTs are normal, and normal renal function. I attest that I have personally reviewed the patient's current medication list. Patient was found to have normal blood pressure on screening and does not require follow-up. The patient has a history of Crohn's disease. She had not been taking Remicade for some time. Her insurance recently approved it. She plans to start taking that again. We also spent some time talking about the need to avoid laxatives and to take a very specific diet. She has no signs of sepsis or intra- abdominal abscess formation. She is afebrile. Her symptoms were relieved with the above medications. However, I did warn her about the possibility of an intra-abdominal abscess. We agreed that she did not want the radiation exposure at this time. If symptoms were to worsen, she will return to the emergency department. Impression Primary Impression: Exacerbation of Crohn's disease Scribe Attestation The scribe's documentation has been prepared under my direction and personally reviewed by me in its entirety. I confirm that the note above accurately reflects all work, treatment, procedures, and medical decision making performed by me. Departure Information Dispostion Home / Self-Care Referrals No Doctor, Assigned (PCP) Forms HOME CARE DOCUMENTATION FORM, IMPORTANT VISIT INFORMATION Patient Instructions My [facility] Additional Instructions Re-start the Remicade. Follow a very strict diet. Avoid spicy foods. Avoid dairy products and bananas which might further cause constipation Return to the ER if you develop more severe pain, uncontrollable vomiting, or fever. Problem Qualifiers Primary Impression: Exacerbation of Crohn's disease Digestive disease complication type: without complication Qualified Codes: K50.90 - Crohn's disease, unspecified, without complications
[2016-11-25 05:38] LABS: BASO % 0.4 %; BASO ABS # 0.05 K/uL (0-0.2); COMPLETE YES; EOS % 1.3 %; HEMATOCRIT 46.5 % (37-47); IG% 0.3 %; LYMPH % 15.8 %; LYMPH ABS # 2.13 K/uL (1.2-3.4); MEAN CELL VOLUME 86.9 fL (80-100); MEAN CORPUSCULAR HEMOGLOBIN 29.5 pg (25-34); MONO % 6.5 %; NEUT % 75.7 %; PLATELET COUNT 319 K/uL (130-400); RED BLOOD COUNT 5.35 M/uL (4.2-5.4); WHITE BLOOD COUNT 13.48 K/uL (4.8-10.8)
[2016-11-25 05:53] LABS: BUN/CREATININE RATIO 13.4 (10-20); CALCIUM 9.1 mg/dl (8.5-10.1); CREATININE 0.95 mg/dl (0.60-1.20); POTASSIUM 4.1 mmol/L (3.5-5.1)
[2016-11-25 06:15] VITALS: BP 107/61; PULSE 70; O2SAT 99
[2016-11-26] MEDS ORDERED: PRED10TA PO ×2 (13:53)
[2016-11-26] MEDS ORDERED: LINA72CA PO ×2 (14:16)
== END 2016-11-25 06:25 | disposition home or self-care (01) ==
LOC: C.EDB 05:04 → C.EDA 06:25
DX: K50.90 Crohn's disease, unspecified, without complications (principal); Z98.890 Other specified postprocedural states

== ENCOUNTER 2016-11-25 18:37 | Inpatient (IN) | payer OTHER ==
[~2016-11-25] VITALS: Ht 170.2 cm; Wt 86.6 kg
[2016-11-25] MEDS ORDERED: SODIUM CHLORIDE 0.9% 1000ML 1,000 ML IV STA ×2 (20:15→21:08)
[2016-11-25] MEDS ORDERED: ONDANSETRON INJ 2 MG/ML 2 ML VIAL IV STA (20:17)
[2016-11-25 20:34] LABS: BASO % 0.1 %; BASO ABS # 0.01 K/uL (0-0.2); COMPLETE YES; IG% 0.3 %; LYMPH ABS # 1.77 K/uL (1.2-3.4); MEAN CORPUSCULAR HEMOGLOBIN 28.2 pg (25-34); MEAN CORPUSCULAR HGB CONC 33.2 g/dl (32-36); MEAN PLATELET VOLUME 8.7 fL (7.4-10.4); MONO % 2.3 %; NEUT % 88.3 %; PLATELET COUNT 329 K/uL (130-400); RED BLOOD COUNT 5.53 M/uL (4.2-5.4); WHITE BLOOD COUNT 19.68 K/uL (4.8-10.8)
[2016-11-25 20:49] LABS: MANUAL MICROSCOPIC REQUIRED? NO; REVIEW REQ? NO; URINE APPEARANCE CLEAR (CLEAR); URINE BILIRUBIN NEG (NEG); URINE COLOR YELLOW; URINE EPITHELIAL CELL AUTO >30 /lpf (0-5); URINE NITRITE NEG (NEG); URINE PH 5.5 (4.5-7.5); URINE SPECIFIC GRAVITY 1.024 (1.000-1.030); UROBILINOGEN NEG (NEG); ZZUR CULT IF INDIC CLEAN CATCH YES
[2016-11-25 20:50] LABS: PREG INTERNAL NEGATIVE QC NEG CLEAR BACKGROUND; PREG INTERNAL POSITIVE QC POS CONTROL LINE
[2016-11-25 20:54] LABS: CALCIUM 8.9 mg/dl (8.5-10.1); CREATININE 0.9 mg/dl (0.60-1.20)
[2016-11-25 20:57] LABS: ALB/GLOB RATIO 0.9 (0.9-2); C-REACTIVE PROTEIN 0.67 mg/dl (0-0.29)
--- NOTE | 2016-11-25 21:20 | DIAGNOSTIC IMAGING REPORT ---
ABDOMEN 2VIEW W/PA CHEST RTN CLINICAL HISTORY: v/constipation pain COMPARISON STUDY: No previous studies for comparison. FINDINGS: The soft tissues, psoas shadows, renal outlines and intestinal gas pattern appear normal. There is no evidence for bowel obstruction. There is no evidence for free intraperitoneal air. No abnormal abdominal calcifications are seen. A frontal view of the chest was performed and is unremarkable. IMPRESSION: Normal study. Electronically signed by: Rubén Romano M.D. 11/25/2016 9:18 PM Dictated Date/Time: 11/25/2016 9:18 PM
[2016-11-25] MEDS ORDERED: SOAP SUDS ENEMA PR STA (21:26)
[2016-11-25] MEDS ORDERED: OPTIRAY 320 IV PRN (23:15)
--- NOTE | 2016-11-25 23:54 | EMERGENCY ROOM VISIT NOTE ---
History First contact with patient: 20:04 Chief Complaint: ABDOMINAL PAIN Stated Complaint: CHRONS,ABD PAIN,VOMING History of Present Illness The patient is a 26 year old female with Crohn's disease who presents to the Emergency Room with complaints of abdominal pain, constipation, nausea and vomiting. These symptoms have been present for the last 8 days and she hasn't managed to ear or drink "anything" during this time without vomiting straight afterwards. She was seen by Dr Graham just this morning with the same complaint although the history from that note states only 2 days of symptoms. She was given methylprednisone 125mg, dilaudid 1mg, Zofran 4mg and 1L NSS and reported feeling better. Unfortunately after discharge she shortly began to feel nauseous again and has been vomiting. She has active Crohn's disease under Dr Mckenna and is supposed to take budesonide 3mg TID while awaiting to start Remicade treatment. However she reports not being able to remember to take her medication and last took steroids 2 weeks previously. Last colonoscopy was 1 month previously showing active Crohn's disease with inflammation at the terminal ileum. Review of Systems See HPI for pertinent positives & negatives. A total of 10 systems reviewed and were otherwise negative. Past Medical/Surgical History Medical Problems: (1) Constipation (2) Crohns disease Surgical Problems: (1) No history of previous surgery Family History No significant family history Social History Smoking Status: Never Smoker Alcohol Use: occasionally Marital Status: Occupation Status: employed Current/Historical Medications Scheduled Budesonide (Entocort Ec), 3 CAP PO TID Allergies Coded Allergies: No Known Allergies (Verified , 11/25/16) Physical Exam Vital Signs Date Time Temp Pulse Resp B/P (MAP) Pulse Ox O2 Delivery O2 Flow Rate FiO2 11/25/16 21:51 84 18 123/58 97 Room Air 11/25/16 20:36 85 16 107/59 97 Room Air 11/25/16 18:53 36.7 105 16 123/81 99 Room Air Physical Exam VITAL SIGNS: were reviewed as above GENERAL: mild acute distress from pain SKIN: Warm dry and pink HEAD: Normocephalic and atraumatic EYES: extraocular muscles intact, pupils equal and reactive to light OROPHARYNX: non erythematous, clear but dry NECK: Supple, no adenopathy LUNGS: Regular rate, no respiratory distress, clear to auscultation, no accessory muscle use HEART: Regular rate and rhythm, heart sounds 1+2, no murmurs ABDOMEN: Generalized abdominal tenderness (worse in epigastric region), no rebound or guarding, soft, bowel sounds normal BACK: no CVA tenderness EXTREMITIES: Warm and well perfused, no calf tenderness/swelling, no pedal edema. NEUROLOGICALLY: Awake alert and oriented without focal deficit. Cranial nerves 2 -12 intact. Medical Decision & Procedures ER Provider Diagnostic Interpretation: ABDOMEN 2VIEW W/PA CHEST RTN CLINICAL HISTORY: v/constipation pain COMPARISON STUDY: No previous studies for comparison. FINDINGS: The soft tissues, psoas shadows, renal outlines and intestinal gas pattern appear normal. There is no evidence for bowel obstruction. There is no evidence for free intraperitoneal air. No abnormal abdominal calcifications are seen. A frontal view of the chest was performed and is unremarkable. IMPRESSION: Normal study. Electronically signed by: Rubén Romano M.D. 11/25/2016 9:18 PM Dictated Date/Time: 11/25/2016 9:18 PM Laboratory Results 11/25/16 20:25 Red Blood Count 5.53, Mean Corpuscular Volume 85.0, Mean Corpuscular Hemoglobin 28.2, Mean Corpuscular Hemoglobin Concent 33.2, Mean Platelet Volume 8.7, Neutrophils (%) (Auto) 88.3, Lymphocytes (%) (Auto) 9.0, Monocytes (%) (Auto) 2.3, Eosinophils (%) (Auto) 0.0, Basophils (%) (Auto) 0.1, Neutrophils # (Auto) 17.39, Lymphocytes # (Auto) 1.77, Monocytes # (Auto) 0.45, Eosinophils # (Auto) 0.00, Basophils # (Auto) 0.01 11/25/16 20:25 Test 11/25/16 20:25 11/25/16 20:35 White Blood Count 19.68 K/uL (4.8-10.8) Red Blood Count 5.53 M/uL (4.2-5.4) Hemoglobin 15.6 g/dL (12.0-16.0) Hematocrit 47.0 % (37-47) Mean Corpuscular Volume 85.0 fL (80-100) Mean Corpuscular Hemoglobin 28.2 pg (25-34) Mean Corpuscular Hemoglobin Concent 33.2 g/dl (32-36) Platelet Count 329 K/uL (130-400) Mean Platelet Volume 8.7 fL (7.4-10.4) Neutrophils (%) (Auto) 88.3 % Lymphocytes (%) (Auto) 9.0 % Monocytes (%) (Auto) 2.3 % Eosinophils (%) (Auto) 0.0 % Basophils (%) (Auto) 0.1 % Neutrophils # (Auto) 17.39 K/uL (1.4-6.5) Lymphocytes # (Auto) 1.77 K/uL (1.2-3.4) Monocytes # (Auto) 0.45 K/uL (0.11-0.59) Eosinophils # (Auto) 0.00 K/uL (0-0.5) Basophils # (Auto) 0.01 K/uL (0-0.2) RDW Standard Deviation 38.8 fL (36.4-46.3) RDW Coefficient of Variation 12.4 % (11.5-14.5) Immature Granulocyte % (Auto) 0.3 % Immature Granulocyte # (Auto) 0.06 K/uL (0.00-0.02) Erythrocyte Sedimentation Rate 24 mm/hr (0-21) Anion Gap 8.0 mmol/L (3-11) Est Creatinine Clear Calc Drug Dose 104.5 ml/min Estimated GFR () 100.9 Estimated GFR (Non- 87.0 BUN/Creatinine Ratio 10.0 (10-20) Calcium Level 8.9 mg/dl (8.5-10.1) Total Bilirubin 0.5 mg/dl (0.2-1) Aspartate Amino Transf (AST/SGOT) 11 U/L (15-37) Alanine Aminotransferase (ALT/SGPT) 21 U/L (12-78) Alkaline Phosphatase 65 U/L (45-117) C-Reactive Protein 0.67 mg/dl (0-0.29) Total Protein 8.3 gm/dl (6.4-8.2) Albumin 3.9 gm/dl (3.4-5.0) Globulin 4.4 gm/dl (2.5-4.0) Albumin/Globulin Ratio 0.9 (0.9-2) Human Chorionic Gonadotropin, Qual NEG (NEG) Urine Color YELLOW Urine Appearance CLEAR (CLEAR) Urine pH 5.5 (4.5-7.5) Urine Specific [place] 1.024 (1.000-1.030) Urine Protein NEG (NEG) Urine Glucose (UA) NEG (NEG) Urine Ketones 3+ (NEG) Urine Occult Blood NEG (NEG) Urine Nitrite NEG (NEG) Urine Bilirubin NEG (NEG) Urine Urobilinogen NEG (NEG) Urine Leukocyte Esterase NEG (NEG) Urine WBC (Auto) 1-5 /hpf (0-5) Urine RBC (Auto) 0-4 /hpf (0-4) Urine Hyaline Casts (Auto) 1-5 /lpf (0-5) Urine Epithelial Cells (Auto) >30 /lpf (0-5) Urine Bacteria (Auto) 1+ (NEG) Urine Test NEG (NEG) Medications Administered Medications (Trade) Dose Ordered Sig/Marcelo Route Start Time Stop Time Status Last Admin Dose Admin Sodium Chloride 1,000 ml @ 999 mls/hr Q1H1M STAT IV 11/25/16 20:15 11/25/16 21:15 DC 11/25/16 20:41 999 MLS/HR Ondansetron HCl (Zofran Inj) 4 mg NOW STAT IV 11/25/16 20:17 11/25/16 20:18 DC 11/25/16 20:41 4 MG Sodium Chloride 1,000 ml @ 999 mls/hr Q1H1M STAT IV 11/25/16 21:08 11/25/16 22:08 DC 11/25/16 21:50 999 MLS/HR Miscellaneous (Soap Suds Enema) 1 ea ONE STAT MT 11/25/16 21:26 11/25/16 21:32 DC 11/25/16 22:00 1 EA ED Course 20:06 Complete history and physical taken. Discussed getting a CT scan for obstruction and she refused at this time. 20:[address] Moeller and will get an acute abdominal series XR. 21:50 Reassessed patient with no change in symptoms. AXR shows no sign of obstruction, passing some flatus and occasional hard stool with previous colonoscopy showing Crohn's confined. Discussed with Dr Moeller and soap suds enema prescribed. 22:00 Soapsuds enema given. 22:30 Patient reassessed, only a small amount of hard stool 22:45 Discussed with [facility] Hospitalist, refused admission/observation without CT scan to rule out bowel obstruction. I discussed this with the patient and she agreed to having a CT after an in depth conversation regarding the benefits and risks of this. 23:15 The patient was signed out to Dr Moeller for ongoing care, awaiting CT scan Medical Decision Prior records/ancillary studies reviewed. Triage Nursing notes reviewed. Additional history obtained from patient The patient's history was concerning for abdominal pain. Differential diagnosis: Etiologies such as inflammatory bowel disease, constipation, appendicitis, diverticulitis, PUD, biliary pathology, UTI, pancreatitis, obstruction, mesenteric ischemia, aortic pathology, infections, renal colic, as well as others were entertained. Physical examination findings: As above. Generalized abdominal tenderness without guarding or rebound. ER treatment provided: Zofran, NSS 1L, Soap suds enema On reassessment the patient felt better. Diagnostics interpreted by me: The labs revealed elevated white blood count Imaging studies: CT scan pending Consultation: A consultation was placed with the [facility] hospitalist and will evaluate patient after CT scan but will be under the care of the ED until then as long as no emergent surgical pathology. Impression Primary Impression: Exacerbation of Crohn's disease Departure Information Dispostion Still a Patient Condition FAIR Referrals No Doctor, Assigned (PCP) Bala, Eugenio Forte D.O. Patient Instructions [facility] Resident Tracking Resident Involvement: Resident Care Provided Care Provided: Adult ED Problem Qualifiers Primary Impression: Exacerbation of Crohn's disease Digestive disease complication type: unspecified complication Qualified Codes : K50.919 - Crohn's disease, unspecified, with unspecified complications
[2016-11-26] MEDS ORDERED: SODIUM CHLORIDE 0.9% 1000ML 1,000 ML IV SCH (00:15)
[2016-11-26] MEDS ORDERED: ACETAMINOPHEN IV 1,000 MG in EMPTY BAG 0 ML IV STA (00:16)
[2016-11-26] MEDS ORDERED: ACETAMINOPHEN 1000 MG/100 ML IV IV ONE (00:28)
[2016-11-26] MEDS ORDERED: MoRPHine SULFATE 2 MG/ML CARP IV PRN (00:30)
--- NOTE | 2016-11-26 01:14 | EMERGENCY ROOM VISIT NOTE ---
ED Visit Note First contact with patient: 20:04 Resident Physician Supervision Note: I interviewed and examined the patient. Discussed with Dr. Fish and agree with findings and plan as documented in the note. Any exceptions or clarifications are listed here: [None] The patient was examined and had some continued nausea and pain. She is noted to have a significant leukocytosis which is worsened since earlier in the day. She did receive some IV Solu-Medrol which may have contributed. Abdominal x- ray series is significant for fecal retention, there is no clear evidence of bowel obstruction. The case was discussed with the hospitalist service due to the need for IV hydration, a bowel regimen and continued nausea. They have requested a CT scan of the abdomen and pelvis which has been performed. The CT is significant for possible SBO related to the Crohn's. Patient was made aware of the plan for admission and agrees. Please refer to Dr. Fish's notes for further details of the history, physical and visit. Documented By: Tracie Moeller
[2016-11-26] MEDS ORDERED: ONDANSETRON INJ 2 MG/ML 2 ML VIAL IV PRN (02:00)
[2016-11-26] MEDS ORDERED: POLYETHYLENE (MIRALAX) 17 GM PACK PO PRN (02:00)
[2016-11-26] MEDS ORDERED: ACETAMINOPHEN 325 MG TAB PO PRN (02:00)
[2016-11-26] MEDS: METHYLPREDNISOLONE IV 60 MG in SYRINGE 0 ML IV SCH ×3 (02:00→14:25)
--- NOTE | 2016-11-26 02:03 | History and Physical ---
History & Physical Date & Time of Service: Nov 26, 2016 at 02:03 Chief Complaint: Chrons,Abd Pain,V[place] Primary Care Physician: No Doctor, Assigned History of Present Illness Source: patient 26-year-old female with past medical history of Crohn's disease presented to the ER with complaints of abdominal pain and constipation, nausea and vomiting that started about 2 days ago. Complains of abdominal pain in the mid abdominal area, 10 on 10 in severity with no radiation with persistent nausea and vomiting. Denies any diarrhea but has been constipated. Denies any better bleeding per rectum or melena, fevers or chills. She was seen this morning in the ER and given methylprednisone 125 mg, Dilaudid 1 mg, Zofran but she continued to have pain on going home along with nausea and vomiting. She is active Crohn's disease and is followed by Dr. Mckenna. She has been noncompliant with her medication, had used Remicade for about a year in the past and stopped as she was gaining weight. She was also recommended to use but is a 3 mg 3 times a day but she states that she has been forgetful to take it. Her last colonoscopy was about a month ago. She is scheduled to start Remicade. Received soapsuds enema in the ER. Past Medical/Surgical History Crohn's disease Family History No significant family history Social History Smoking Status: Never Smoker Marital Status: Occupational Status: employed Allergies Coded Allergies: No Known Allergies (Verified , 11/25/16) Home Medications Scheduled Budesonide (Entocort Ec), 3 CAP PO TID Linaclotide (Linzess), 2 CAP PO DAILY Prednisone (Prednisone), 10 MG PO UD Review of Systems Constitutional: No fever, No chills Eyes: No worsening of vision ENT: No hearing loss Respiratory: No cough, No sputum, No wheezing Cardiovascular: No chest pain Abdomen: + pain, + nausea, + vomiting, + constipation Musculoskeletal: No joint pain Genitourinary - Female: No dysuria, No urinary frequency Neurologic: No memory loss Psychiatric: No depression symptoms Endocrine: No fatigue Hematologic / Lymphatic: No abnormal bleeding/bruising Integumentary: No rash Physical Exam Vital Signs Date Time Temp Pulse Resp B/P (MAP) Pulse Ox O2 Delivery O2 Flow Rate FiO2 11/26/16 01:39 80 18 104/63 97 Room Air 11/25/16 23:39 89 18 128/74 98 Room Air 11/25/16 21:51 84 18 123/58 97 Room Air 11/25/16 20:36 85 16 107/59 97 Room Air 11/25/16 18:53 36.7 105 16 123/81 99 Room Air General Appearance: WD/WN, no apparent distress Head: normocephalic Eyes: normal inspection ENT: normal ENT inspection, hearing grossly normal Neck: supple Respiratory/Chest: chest non-tender, lungs clear, normal breath sounds, no respiratory distress, no accessory muscle use Cardiovascular: regular rate, rhythm Abdomen/GI: soft, + tenderness (mid abdominal area) Back: normal inspection, no CVA tenderness Extremities/Musculoskelatal: no pedal edema Neurologic/Psych: alert, normal mood/affect, oriented x 3 Skin: normal color Diagnostics Laboratory Results Results Past 24 Hours Test 11/25/16 20:25 11/25/16 20:35 Range/Units White Blood Count 19.68 4.8-10.8 K/uL Red Blood Count 5.53 4.2-5.4 M/uL Hemoglobin 15.6 12.0-16.0 g/dL Hematocrit 47.0 37-47 % Mean Corpuscular Volume 85.0 80-100 fL Mean Corpuscular Hemoglobin 28.2 25-34 pg Mean Corpuscular Hemoglobin Concent 33.2 32-36 g/dl Platelet Count 329 130-400 K/uL Mean Platelet Volume 8.7 7.4-10.4 fL Neutrophils (%) (Auto) 88.3 % Lymphocytes (%) (Auto) 9.0 % Monocytes (%) (Auto) 2.3 % Eosinophils (%) (Auto) 0.0 % Basophils (%) (Auto) 0.1 % Neutrophils # (Auto) 17.39 1.4-6.5 K/uL Lymphocytes # (Auto) 1.77 1.2-3.4 K/uL Monocytes # (Auto) 0.45 0.11-0.59 K/uL Eosinophils # (Auto) 0.00 0-0.5 K/uL Basophils # (Auto) 0.01 0-0.2 K/uL RDW Standard Deviation 38.8 36.4-46.3 fL RDW Coefficient of Variation 12.4 11.5-14.5 % Immature Granulocyte % (Auto) 0.3 % Immature Granulocyte # (Auto) 0.06 0.00-0.02 K/uL Erythrocyte Sedimentation Rate 24 0-21 mm/hr Sodium Level 140 136-145 mmol/L Potassium Level 4.0 3.5-5.1 mmol/L Chloride Level 107 98-107 mmol/L Carbon Dioxide Level 25 21-32 mmol/L Anion Gap 8.0 3-11 mmol/L Blood Urea Nitrogen 9 7-18 mg/dl Creatinine 0.90 0.60-1.20 mg/dl Est Creatinine Clear Calc Drug Dose 104.5 ml/min Estimated GFR () 100.9 Estimated GFR (Non- 87.0 BUN/Creatinine Ratio 10.0 10-20 Random Glucose 116 70-99 mg/dl Calcium Level 8.9 8.5-10.1 mg/dl Total Bilirubin 0.5 0.2-1 mg/dl Aspartate Amino Transf (AST/SGOT) 11 15-37 U/L Alanine Aminotransferase (ALT/SGPT) 21 12-78 U/L Alkaline Phosphatase 65 45-117 U/L C-Reactive Protein 0.67 0-0.29 mg/dl Total Protein 8.3 6.4-8.2 gm/dl Albumin 3.9 3.4-5.0 gm/dl Globulin 4.4 2.5-4.0 gm/dl Albumin/Globulin Ratio 0.9 0.9-2 Human Chorionic Gonadotropin, Qual NEG NEG Urine Color YELLOW Urine Appearance CLEAR CLEAR Urine pH 5.5 4.5-7.5 Urine Specific [place] 1.024 1.000-1.030 Urine Protein NEG NEG Urine Glucose (UA) NEG NEG Urine Ketones 3+ NEG Urine Occult Blood NEG NEG Urine Nitrite NEG NEG Urine Bilirubin NEG NEG Urine Urobilinogen NEG NEG Urine Leukocyte Esterase NEG NEG Urine WBC (Auto) 1-5 0-5 /hpf Urine RBC (Auto) 0-4 0-4 /hpf Urine Hyaline Casts (Auto) 1-5 0-5 /lpf Urine Epithelial Cells (Auto) >30 0-5 /lpf Urine Bacteria (Auto) 1+ NEG Urine Test NEG NEG Microbiology Results 11/25/16 Urine Culture, Received Pending Diagnostic Radiology [~ rep ct add3]] ABDOMEN 2VIEW W/PA CHEST RTN CLINICAL HISTORY: v/constipation pain COMPARISON STUDY: No previous studies for comparison. FINDINGS: The soft tissues, psoas shadows, renal outlines and intestinal gas pattern appear normal. There is no evidence for bowel obstruction. There is no evidence for free intraperitoneal air. No abnormal abdominal calcifications are seen. A frontal view of the chest was performed and is unremarkable. IMPRESSION: Normal study. CT abdomen and pelvis: Prominent loops of small bowel seen within the pelvis with multifocal areas of narrowing extending to the cecal valve. Findings likely represent multifocal areas of stenosis and bowel stasis secondary to known Crohn's disease. Early bowel obstruction is not excluded. There is a short segment of mild bowel wall thickening within the deep pelvis, which may represent active disease. There is mild edema noted within the small bowel mesentery. Mild bowel wall thickening of the rectum which may represent proctitis. colon Is unremarkable. Impression Assessment and Plan 26-year-old female with past medical history of Crohn's disease presented to the ER with complaints of abdominal pain and constipation, nausea and vomiting that started about 2 days ago. Noncompliant with medication, scheduled to start Remicade soon. Last colonoscopy about a month ago but Dr. Mckenna Active Crohn's disease: CT abdomen and pelvis: Prominent loops of small bowel seen within the pelvis with multifocal areas of narrowing extending to the cecal valve. Findings likely represent multifocal areas of stenosis and bowel stasis secondary to known Crohn's disease. Early bowel obstruction is not excluded. There is a short segment of mild bowel wall thickening within the deep pelvis, which may represent active disease -Solu-Medrol 60 mg 4 times a day - Zosyn and Flagyl for bowel stasis - Probiotics - Continue IV fluids - Gastroenterology consult DVT prophylaxis: SCDs Encourage ambulation Full code Disposition-admitted to [facility] Level of Care Med/Surg Resuscitation Status FULL RESUSCITATION VTE Prophylaxis VTE Risk Assessment Done? Y/N: Yes Risk Level: Moderate Given or contraindicated: Unfractionated heparin SQ Resident Tracking Resident Involvement: Resident Care Provided Care Provided: Adult [facility] Medicine Assessment and Plan Attending Addendum: I have physically seen and examined this patient, have directed their medical care, have supervised the medical residents activities, and agree with the H&P as noted above, with the following changes: NONE
[2016-11-26] MEDS ORDERED: METRONIDAZOLE 500MG / 100ML NSS ONE (02:15)
[2016-11-26] MEDS: METRONIDAZOLE / NSS 500 MG in PREMIXED NSS 100 ML IV SCH ×2 (02:19→10:20)
[2016-11-26 02:35] VITALS: O2SAT 99
[2016-11-26 03:00] VITALS: BP 96/45; PULSE 66; TEMP 36.5; Ht 170.2 cm; Wt 86.6 kg
[2016-11-26] MEDS ORDERED: PIPERACILL/TAZOBAC CONSULT ACTIVE PRN (03:30)
[2016-11-26] MEDS ORDERED: PIPERACILL/TAZOBAC IV 3.375 GM in DEXTROSE 5% 100ML IV ONE (04:00)
[2016-11-26] MEDS ORDERED: PIPERACILL/TAZOBAC IV 3.375 GM in DEXTROSE 5% 100ML 100 ML IV SCH (06:00)
[2016-11-26 06:40] LABS: BASO % 0.1 %; BASO ABS # 0.01 K/uL (0-0.2); COMPLETE YES; HEMATOCRIT 38.6 % (37-47); IG% 0.2 %; LYMPH % 7.9 %; LYMPH ABS # 0.82 K/uL (1.2-3.4); MEAN CELL VOLUME 86.4 fL (80-100); MEAN CORPUSCULAR HEMOGLOBIN 29.3 pg (25-34); MEAN CORPUSCULAR HGB CONC 33.9 g/dl (32-36); MEAN PLATELET VOLUME 9.1 fL (7.4-10.4); MONO % 1.6 %; NEUT % 90.2 %; PLATELET COUNT 237 K/uL (130-400); RED BLOOD COUNT 4.47 M/uL (4.2-5.4); WHITE BLOOD COUNT 10.33 K/uL (4.8-10.8)
--- NOTE | 2016-11-26 06:56 | DIAGNOSTIC IMAGING REPORT ---
CT ABD/PELVIS IV CONTRAST ONLY CLINICAL HISTORY: Crohn's, abdominal pain, nausea, vomiting COMPARISON STUDY: None. TECHNIQUE: Following the IV administration of 95 mL of Optiray-320, CT scan of the abdomen and pelvis was performed from the lung bases to the proximal femurs. Images are reviewed in the axial, sagittal, and coronal planes. IV contrast was administered without complication. CT DOSE: 541.96 mGy.cm FINDINGS: Lower chest: There are minimal basilar atelectatic changes. Liver: The contrast-enhanced liver is normal in size, contour, and attenuation. There is no intrahepatic biliary ductal dilatation. The hepatic veins and portal veins are patent. Gallbladder: Unremarkable. Spleen: Normal in size and attenuation. Pancreas: Unremarkable. Adrenal glands: Unremarkable. Kidneys: There is symmetric renal cortical enhancement. The kidneys are normal in size without hydronephrosis. Bowel: There is suspected mild rectal wall thickening. There are dilated mid and lower abdominal small bowel loops with mild wall thickening and a feces sign. 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 There is mild hypertrophy of the mucosal fat within the small bowel. There is a suspected distal ileal stricture. The findings are consistent with the clinical diagnosis of Crohn's disease. Peritoneum: There is no intraperitoneal free air or abdominal ascites. Vasculature: The abdominal aorta is normal in course and caliber. Adenopathy: None. Pelvic viscera: The bladder, and pelvic viscera are unremarkable. Skeletal structures: No destructive osseous lesions are seen. IMPRESSION: 1. Abnormal study. Dilated mid and lower abdominal small bowel loops with formed feces. Several loops demonstrate mild bowel wall thickening. There is a distal ileal stricture. There is mild edema within the small bowel mesentery. 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 There is rectal wall thickening. The findings are consistent with the clinical diagnosis of Crohn's disease. Electronically signed by: Brandon Price M.D. 11/26/2016 6:55 AM Dictated Date/Time: 11/26/2016 6:48 AM
[2016-11-26 07:02] VITALS: BP 96/51; PULSE 65; TEMP 36.7; O2SAT 97
[2016-11-26 07:21] LABS: CALCIUM 7.9 mg/dl (8.5-10.1); CREATININE 0.76 mg/dl (0.60-1.20); POTASSIUM 3.9 mmol/L (3.5-5.1)
[2016-11-26] MEDS ORDERED: PNEUMOCOCCAL POLYSACCHARIDES 25 MCG/0.5 ML VIAL/SYR IM. ONE (08:00)
[2016-11-26] MEDS ORDERED: PNEUMOCOCCAL ADMINISTRATION CHARGE ONE (08:00)
[2016-11-26] MEDS ORDERED: SACCHAROMYCES BOUL (FLORASTOR) 250 MG CAP PO SCH (08:00)
[2016-11-26] MEDS: PIPERACILL/TAZOBAC IV 3.375 GM in DEXTROSE 5% 100ML IV SCH ×2 (08:46→15:55)
--- NOTE | 2016-11-26 09:54 | Gastrointestinal Consultation ---
Gastrointestinal Consultation Date of Consultation: Nov 26, 2016 Attending Physician: Dr. Dean Consulting Physician: Dr. Mckenna/SHELLEY Anthony Reason for Consultation: Crohn's disease History of Present Illness Patient is a 26 year old female with a history of Crohn's ileitis diagnosed 7 years ago as well as chronic constipation with associated intermittent nausea and vomiting initially evaluated in our office on 10/15/16. At that time, she was establishing local gastroenterology care as she had just moved to the area from [place], [place]. 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 Virk had previously treated the patient with corticosteroids, Pentasa and most recently Remicade. While receiving Remicade, she was in a deep remission but the patient had reportedly discontinued the medication against medical advice due to concern that the infusions were causing her to gain weight. After discontinuation, she states she realized that the medication was not contributory as she has continued to struggle with weight management. At our initial visit, I had recommended a colonoscopy for disease staging/ colorectal surveillance (as it was close to 8 years). Testing revealed active ileitis with aphthous ulcerations without any significant ileal stenosis. Colon appeared normal. She was prescribed Entocort 9 mg daily which she states she has not been completely adherent to. Additionally, I had ordered Remicade antibody levels which were negative and had determined to restart her Remicade as she was quite successful on treatment in the past. She is scheduled to start her induction infusions tomorrow at [facility]. Unfortunately, despite Budesonide, she has been having worsening symptoms of abdominal pain, nausea with vomiting and severe constipation which have prompted two prior ER evaluations and subsequent admission last evening. On arrival, she was reporting upper abdominal pain 10/10 in intensity as well as persistent nausea with vomiting. She did inform the ER that she was having severe constipation and had taken a laxative prior to arrival. After receiving a soap suds enema in the ER, the patient reports improved abdominal pain and no further nausea or vomiting. At present, she rates her pain as 0/10. No fever or chills, arthralgias, myalgias or eye pain/redness. She states "I know I will feel completely better if I just get cleaned out. This has happened to me many times in the past". Laboratory testing on arrival was reviewed and as follows: WBC count 19.68, hemoglobin 15.6, hematocrit 47.0, platelets 329, ESR 24, CRP 0.67, sodium 140, potassium 4.0, BUN 9 and creatinine 0.90. Liver panel was unremarkable. 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 Abdominal series was negative for obstruction. Patient has been started on high dose IV steroids and antibiotics. She remains NPO. Past Medical/Surgical History Medical Problems: (1) Exacerbation of Crohn's disease Status: Acute Past Medical History: 1. Crohn's ileitis 2. Chronic constipation Past Surgical History: 1. Ovarian cystectomy 2. Tonsillectomy 3. Complete colonoscopy Family History No significant family history Family history of Crohn's disease and colon cancer Social History Smoking Status: Never Smoker Alcohol Use: occasionally Drug Use: none Marital Status: Housing Status: lives with significant other Occupation Status: employed Allergies Coded Allergies: No Known Allergies (Verified , 11/25/16) Current Medications Home Meds and Scripts Medications Dose Route/Sig Max Daily Dose Days Date Category Entocort Ec (Budesonide) 3 Mg Cap 3 Cap PO TID 10/21/16 Reported Review of Systems See HPI for pertinent positives & negatives. A total of 10 systems reviewed and were otherwise negative. Physical Exam Date Time Temp Pulse Resp B/P (MAP) Pulse Ox O2 Delivery O2 Flow Rate FiO2 11/26/16 07:02 36.7 65 18 96/51 (66) 97 Room Air 11/26/16 03:00 36.5 66 18 96/45 Room Air 11/26/16 02:35 95 17 107/64 99 11/26/16 01:39 80 18 104/63 97 Room Air 11/25/16 23:39 89 18 128/74 98 Room Air 11/25/16 21:51 84 18 123/58 97 Room Air 11/25/16 20:36 85 16 107/59 97 Room Air 11/25/16 18:53 36.7 105 16 123/81 99 Room Air General Appearance: WD/WN, no apparent distress Eyes: EOMI ENT: hearing grossly normal Neck: supple Respiratory/Chest: lungs clear, normal breath sounds, no respiratory distress Cardiovascular: regular rate, rhythm, no gallop, no murmur Abdomen: normal bowel sounds, non tender, soft Extremities: normal inspection Neurologic/Psych: alert, normal mood/affect, oriented x 3 Skin: warm/dry Laboratory Results Last 24 Hours Test 11/25/16 20:25 11/25/16 20:35 11/26/16 06:14 White Blood Count 19.68 K/uL 10.33 K/uL Red Blood Count 5.53 M/uL 4.47 M/uL Hemoglobin 15.6 g/dL 13.1 g/dL Hematocrit 47.0 % 38.6 % Mean Corpuscular Volume 85.0 fL 86.4 fL Mean Corpuscular Hemoglobin 28.2 pg 29.3 pg Mean Corpuscular Hemoglobin Concent 33.2 g/dl 33.9 g/dl Platelet Count 329 K/uL 237 K/uL Mean Platelet Volume 8.7 fL 9.1 fL Neutrophils (%) (Auto) 88.3 % 90.2 % Lymphocytes (%) (Auto) 9.0 % 7.9 % Monocytes (%) (Auto) 2.3 % 1.6 % Eosinophils (%) (Auto) 0.0 % 0.0 % Basophils (%) (Auto) 0.1 % 0.1 % Neutrophils # (Auto) 17.39 K/uL 9.31 K/uL Lymphocytes # (Auto) 1.77 K/uL 0.82 K/uL Monocytes # (Auto) 0.45 K/uL 0.17 K/uL Eosinophils # (Auto) 0.00 K/uL 0.00 K/uL Basophils # (Auto) 0.01 K/uL 0.01 K/uL RDW Standard Deviation 38.8 fL 40.8 fL RDW Coefficient of Variation 12.4 % 12.8 % Immature Granulocyte % (Auto) 0.3 % 0.2 % Immature Granulocyte # (Auto) 0.06 K/uL 0.02 K/uL Erythrocyte Sedimentation Rate 24 mm/hr Sodium Level 140 mmol/L 142 mmol/L Potassium Level 4.0 mmol/L 3.9 mmol/L Chloride Level 107 mmol/L 111 mmol/L Carbon Dioxide Level 25 mmol/L 24 mmol/L Anion Gap 8.0 mmol/L 7.0 mmol/L Blood Urea Nitrogen 9 mg/dl 8 mg/dl Creatinine 0.90 mg/dl 0.76 mg/dl Est Creatinine Clear Calc Drug Dose 104.5 ml/min 124.6 ml/min Estimated GFR () 100.9 123.7 Estimated GFR (Non- 87.0 106.8 BUN/Creatinine Ratio 10.0 11.0 Random Glucose 116 mg/dl 124 mg/dl Calcium Level 8.9 mg/dl 7.9 mg/dl Total Bilirubin 0.5 mg/dl 0.6 mg/dl Aspartate Amino Transf (AST/SGOT) 11 U/L 8 U/L Alanine Aminotransferase (ALT/SGPT) 21 U/L 15 U/L Alkaline Phosphatase 65 U/L 53 U/L C-Reactive Protein 0.67 mg/dl Total Protein 8.3 gm/dl 6.5 gm/dl Albumin 3.9 gm/dl 3.2 gm/dl Globulin 4.4 gm/dl 3.3 gm/dl Albumin/Globulin Ratio 0.9 1.0 Human Chorionic Gonadotropin, Qual NEG Urine Color YELLOW Urine Appearance CLEAR Urine pH 5.5 Urine Specific [place] 1.024 Urine Protein NEG Urine Glucose (UA) NEG Urine Ketones 3+ Urine Occult Blood NEG Urine Nitrite NEG Urine Bilirubin NEG Urine Urobilinogen NEG Urine Leukocyte Esterase NEG Urine WBC (Auto) 1-5 /hpf Urine RBC (Auto) 0-4 /hpf Urine Hyaline Casts (Auto) 1-5 /lpf Urine Epithelial Cells (Auto) >30 /lpf Urine Bacteria (Auto) 1+ Urine Test NEG Impression Patient is a 26 year old female with a history of Crohn's ileitis admitted with abdominal pain, nausea and vomiting, and constipation with abnormal imaging suggestive of active Crohn's with possible fistula and stenosis although no stricture seen on recent colonoscopy one month ago awaiting reinitiation of Remicade therapy. Plan Patient was seen and evaluation in combination with Dr. Dean. Patient reports significant improvement in her abdominal pain and no further nausea or vomiting. She does state that she continues to feel bloated and constipated. 1. 1 liter GoLytely now. 2. Clear liquid diet. 3. If good evacuation and improved symptoms, could advance diet. 4. Plan to be hopefully discharged later today as she is scheduled for her first outpatient Remicade infusion tomorrow at [facility]. Discussed with Dr. Dean and patient is hopeful for discharge today as well. 5. Upon discharge, recommend a Prednisone taper of 40 mg daily to be decreased by 5 mg weekly until complete. 6. No need for continued abiotic use upon discharge. 7. Will plan to start her on a good bowel regimen upon discharge with Linzess 145 mcg daily. Has previously tried MiraLAX and Senna. 8. Encouraged 64 ounces of water per day. 9. Close outpatient follow up within 2 weeks upon discharge to follow. Sooner if new or worsening symptoms after restarting Remicade. Thank you for allowing us to participate in the care of this pleasant patient. If you have any questions or concerns, please do not hesitate to contact us. Agree with SHELLEY Anthony as above Abd: Soft, NT, ND, +BS Had a BM earlier today Doing better this afternoon For Remicade tomorrow AM
[2016-11-26] MEDS: SODIUM CHLORIDE 0.9% 1000ML 1,000 ML IV SCH ×2 (10:21→10:54)
[2016-11-26] MEDS: LAVAGE SOLUTION 4000ML PO SCH ×3 (11:12→11:57)
[2016-11-26] MEDS ORDERED: PRED10TA PO ×2 (13:53)
--- NOTE | 2016-11-26 14:15 | Discharge Instructions ---
Discharge Instructions Date of Service Nov 26, 2016. Admission Reason for Admission: Exacerbation Of Crohns Disease Discharge Discharge Diagnosis / Problem: Exacerbation of Crohn's disease Discharge Goals Goal(s): Decrease discomfort, Improve function, Diagnostic testing, Therapeutic intervention Activity Recommendations Activity Limitations: resume your previous activity (as tolerated) . Instructions / Follow-Up Instructions / Follow-Up You were admitted to the hospital after presenting with persistent abdominal pain, nausea, vomiting, and constipation. A CT scan of your abdomen and pelvis showed changes consistent with Crohn's disease as well as a suspected small bowel fistula. There was no evidence of a bowel obstruction. You were seen by gastroenterology, who recommended drinking some bowel prep to help move your bowels. You will also be discharged on a slow Prednisone taper over the next 8 weeks as well as a medication to treat chronic constipation. You will no longer require antibiotics when you are discharged. *Recommendations: *You may return to a regular diet as tolerated. Medications: *Please complete the following Prednisone taper as instructed: -Take 40 mg (4 tablets) by mouth once daily for 7 days, then -Take 35 mg (3.5 tablets) by mouth once daily for 7 days, then -Take 30 mg (3 tablets) by mouth once daily for 7 days, then -Take 25 mg (2.5 tablets) by mouth once daily for 7 days, then -Take 20 mg (2 tablets) by mouth once daily for 7 days, then -Take 15 mg (1.5 tablets) by mouth once daily for 7 days, then -Take 10 mg (1 tablet) by mouth once daily for 7 days, then -Take 5 mg (0.5 tablet) by mouth once daily for 7 days, then STOP *Take Linzess 2 capsules by mouth daily for constipation. *Continue taking your other home medications as prescribed. Follow up: *Please follow up with your primary care provider in 1 week regarding your hospital stay and changes to your medications. *Please follow up Dr. Mckenna of gastroenterology in 2 weeks. Please seek medical attention if you experience fevers, chills, sweats, chest pain, shortness of breath, nausea, vomiting, persistent abdominal pain, numbness or tingling. Current Hospital Diet Patient's current hospital diet: Clear Liquid Diet Discharge Diet Recommended Diet: Regular Diet Pending Studies Studies pending at discharge: no Medical Emergencies . Who to Call and When: Medical Emergencies: If at any time you feel your situation is an emergency, please call 911 immediately. . Non-Emergent Contact Non-Emergency issues call your: Primary Care Provider, Clinical Investigator Call Non-Emergent contact if: you have a fever, your pain is not controlled, your pain is worsening, your pain is unusual for you, your pain is concerning you, you have any medication questions . Past History Medical & Surgical History: (1) Exacerbation of Crohn's disease . "Provider Documentation" section prepared by Nikole Curry. . VTE Core Measure Inpt VTE Proph given/why not?: Unfractionated heparin SQ
[2016-11-26] MEDS ORDERED: LINA72CA PO ×2 (14:16)
--- NOTE | 2016-11-26 14:29 | Discharge Summary ---
Discharge Summary Date of Service Nov 26, 2016. (Nikole Curry, DANILO) Discharge Summary Admission Date: Nov 26, 2016 at 02:03 Discharge Date: Nov 26, 2016 Discharge Disposition: Home Principal Diagnosis: Exacerbation of Crohn's disease Procedures: Patient Name: SAI MASON Unit Number: [id number] Dictated: 11/26/16647 Transcribed: 11/26/16647 ARG Printed Date/Time: [~ rep prt dt]/[~ rep prt tm] [~ rep ct labl] - [~ rep ct ivnm] [facility] [place] [address] Dictated: 11/26/16647 Transcribed: 11/26/16647 ARG Printed Date/Time: [~ rep prt dt]/[~ rep prt tm] [~ rep ct labl] - [~ rep ct ivnm] Patient: SAI MASON Address1: [address] [place] [address] Rec: [id number] Address2: Acct ID: [id number] [facility] Zip: [place] [address] Date: 1990 Sex: F Room/Bed: [facility] Ref Phy: No Doctor, Assigned SC: ALEK Att Phy: Nelson Rodarte M.D. Report #: [id number] Phy: No Doctor, Assigned Test: APIV Admit Phy: Brittany Valente MD Interior Design Professor: ANTHONY Interpreting Phy: Brandon Price M.D. Diagnosis: EXACERBATION OF CROHNS DISEASE Ordering Phy: Mc Fsih MD Service Date: 11/25/16 Admit Date: 11/25/1705/15/17 MNE: [id number] CONF: DICTATED BY: Brandon Price M.D.]] CC: Mc Fish MD No Doctor, Assigned Nelson Rodarte M.D. Endcc: [~ rep ct add3]] CT ABD/PELVIS IV CONTRAST ONLY CLINICAL HISTORY: Crohn's, abdominal pain, nausea, vomiting COMPARISON STUDY: None. TECHNIQUE: Following the IV administration of 95 mL of Optiray-320, CT scan of the abdomen and pelvis was performed from the lung bases to the proximal femurs. Images are reviewed in the axial, sagittal, and coronal planes. IV contrast was administered without complication. CT DOSE: 541.96 mGy.cm FINDINGS: Lower chest: There are minimal basilar atelectatic changes. Liver: The contrast-enhanced liver is normal in size, contour, and attenuation. There is no intrahepatic biliary ductal dilatation. The hepatic veins and portal veins are patent. Gallbladder: Unremarkable. Spleen: Normal in size and attenuation. Pancreas: Unremarkable. Adrenal glands: Unremarkable. Kidneys: There is symmetric renal cortical enhancement. The kidneys are normal in size without hydronephrosis. Bowel: There is suspected mild rectal wall thickening. There are dilated mid and lower abdominal small bowel loops with mild wall thickening and a feces sign. 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 There is mild hypertrophy of the mucosal fat within the small bowel. There is a suspected distal ileal stricture. The findings are consistent with the clinical diagnosis of Crohn's disease. Peritoneum: There is no intraperitoneal free air or abdominal ascites. Vasculature: The abdominal aorta is normal in course and caliber. Adenopathy: None. Pelvic viscera: The bladder, and pelvic viscera are unremarkable. Skeletal structures: No destructive osseous lesions are seen. IMPRESSION: 1. Abnormal study. Dilated mid and lower abdominal small bowel loops with formed feces. Several loops demonstrate mild bowel wall thickening. There is a distal ileal stricture. There is mild edema within the small bowel mesentery. 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 There is rectal wall thickening. The findings are consistent with the clinical diagnosis of Crohn's disease. Electronically signed by: Brandon Price M.D. 11/26/2016 6:55 AM Dictated Date/Time: 11/26/2016 6:48 AM The status of this report is Signed. Draft = Not yet reviewed or approved by Radiologist. Signed = Reviewed and approved by Radiologist. <AttendingPhy>Nelson Rodarte M.D.</AttendingPhy> <FamilyPhy>No Doctor, Assigned</FamilyPhy> <PrimaryPhy>No Doctor, Assigned</PrimaryPhy> <UnitNumber> [id number]</UnitNumber> <VisitNumber>[id number]</VisitNumber> <PatientName> SAI MASON</PatientName> <DateOfBirth>1990</DateOfBirth> <Location> [facility]</Location> <ServiceDate>11/25/16</ServiceDate> <MNE>ESINDI</MNE> < OrderingPhy>Mc Fish MD</OrderingPhy> <OrderingPhyMNE>f rep ord dr riggs</ OrderingPhyMNE> <DictatingPhyMNE>f rep dict dr riggs</DictatingPhyMNE> <CCListMNE> f rep ct mne</CCListMNE> <AdmittingPhyMNE>f pt admit dr riggs</AdmittingPhyMNE> < AttendingPhyMNE>f pt attend dr riggs</AttendingPhyMNE> <ConsultingPhyMNE>f pt consult dr riggs</ConsultingPhyMNE> <FamilyPhyMNE>f pt fam dr riggs</FamilyPhyMNE> <OtherPhyMNE>f pt other dr riggs</OtherPhyMNE> < PrimaryPhyMNE>f pt prim care dr riggs</PrimaryPhyMNE> <ReferringPhyMNE>f pt referring dr riggs</ReferringPhyMNE> Consultations: Gastroenterology--Dr. Mckenna (Nikole Curry, PA-C) Medication Reconciliation New Medications: Linaclotide (Linzess) 72 Mcg Cap 2 CAP PO DAILY for 30 Days, #60 CAP Take 2 capsules by mouth daily. Prednisone (Prednisone) 10 Mg Tab 10 MG PO UD for 56 Days, #126 TAB 40 mg x 1 week, then decrease by 5 mg weekly until completed. Continued Medications: Budesonide (Entocort Ec) 3 Mg Cap 3 CAP PO TID Discharge Exam Patient reports feeling well. She denies any nausea, vomiting, or abdominal pain now. She was able to eat a clear liquid diet without any recurrence of symptoms. The patient is eager for discharge as she will start her Remicade treatments tomorrow. The patient denies fevers, chills, sweats, chest pain, palpitations, claudication, cough, wheezing, shortness of breath, nausea, vomiting, abdominal pain, dysuria, hematuria, urinary retention, paralysis, weakness, numbness and tingling. Review of Systems: Constitutional: No fever, No chills, No sweats Eyes: No worsening of vision, No eye pain, No diplopia ENT: No hearing loss, No nasal symptoms, No sore throat Respiratory: No cough, No wheezing, No shortness of breath Cardiovascular: No chest pain, No claudication, No palpitations Abdomen: No pain, No nausea, No vomiting Musculoskeletal: No joint pain, No muscle pain, No calf pain Genitourinary - Female: No dysuria, No urinary retention, No hematuria Neurologic: No paralysis, No weakness, No numbness/tingling Integumentary: No rash, No itch, No color change Physical Exam: General Appearance: WD/WN, no apparent distress Eyes: normal inspection, PERRL, EOMI ENT: normal ENT inspection, hearing grossly normal, pharynx normal Neck: supple, no JVD, trachea midline Respiratory/Chest: lungs clear, normal breath sounds, no respiratory distress Cardiovascular: regular rate, rhythm, no gallop, no murmur Abdomen / GI: normal bowel sounds, non tender, soft Extremities: normal inspection, no calf tenderness, no pedal edema Neurologic/Psychiatric: alert, normal mood/affect, oriented x 3 Skin: normal color, warm/dry, no rash (Nikole Curry, DANILO) Hospital Course 26-year-old female with past medical history of Crohn's disease presented to the ER with complaints of abdominal pain and constipation, nausea and vomiting x 2 days. Reportedly noncompliant with medication (budesonide). She is scheduled to start Remicade tomorrow (11/27). Last colonoscopy about a month ago by Dr. Mckenna, who follows her Crohn's. Crohn's disease exacerbation, abdominal pain, constipation, N/V--improving -Admitted to med/surg -CT abdomen and pelvis: shows changes consistent with Crohn's disease and a suspected fistula. No bowel obstruction. -GI consulted, appreciate recs: Give 1L GoLytely x 1 now to move bowels. Clear liquid diet. If adequate evacuation and improved symptoms, may advance diet. Recommend Prednisone taper of 40 mg daily, decrease by 5 mg weekly until completed. May discontinue antibiotic at discharge. Start Linzess 145 mcg PO qd for bowel regimen as failed MiraLax and Senna. Encourage adequate hydration with 64 oz water a day. F/u as an outpatient in 2 weeks or sooner if acute issues arise after starting Remicade. -Solu-Medrol 60 mg 4 times a day while inpatient -Prednisone taper as recommended prescribed -Linzess 145 mcg tabs non-formulary, prescribed to take two 72 mcg tablets a day instead - Zosyn and Flagyl d/c at discharge - Probiotics - Continue IV fluids - WBC improved, 10.33 on 11/26, down from 19.68 -Continue budesonide 3 mg PO TID DVT prophylaxis -SCDs -Encourage ambulation Code Status -Level I, FULL RESUSCITATION STATUS Total Time Spent: Greater than 30 minutes This includes examination of the patient, discharge planning, medication reconciliation, and communication with other providers. (Nikole Curry ., PA-C) I agree with PA assessment and plan and have seen and examined pt myself Resting comfortably in bed Pain resolved Labs and vitals reviewed Appreciate GI recs Will give golytely and add linzess for bowel regimen Likely DC later today with goal of remicade infusion tomorrow with Dr Mckenna (Gee Dean D.OCarmina) Discharge Instructions Please refer to the electronic Patient Visit Report (Discharge Instructions) for additional information. (Nikole Curry ., PA-C) Additional Copies To Eugenio Mckenna D.O.
[2016-11-26 15:30] VITALS: BP 126/79; PULSE 67; TEMP 36.6; O2SAT 98
[2016-11-26] MEDS ORDERED: MILK AND MOLASSES ENEMA PR ONE (16:00)
[2016-11-26 17:03] VITALS: BP 126/79; PULSE 67; TEMP 36.6; O2SAT 98
== END 2016-11-26 17:14 | disposition home or self-care (01) | DRG 387 ==
LOC: C.EDB 18:38 → C.MS4W 11-26 02:03 → ENRESERV 11-26 02:26
PROVIDERS: ADMIT Family Medicine; ATTEND Hospitalist
DX: K50.00 Crohn's disease of small intestine without complications (principal); K59.8 Other specified functional intestinal disorders; Z79.52 Long term (current) use of systemic steroids

== ENCOUNTER → 2017-03-24 | Outpatient (CLI) | payer OTHER ==
[~2017-03-24] MED LIST changes: -BUDE1CAP6 PO; +BUDE3CAP14 PO; +LINA72CA PO
[2017-03-24 10:21] LABS: CALCULATED INSULIN SENSITIVITY 0.343; GLUCOSE LOG 1.9685; INSULIN FASTING 8.8 mU/L (3-25); INSULIN LOG 0.9445
== END | disposition home or self-care (01) ==
LOC: C.LAB1850 08:19
PROVIDERS: ATTEND Obstetrics & Gynecology
DX: E28.2 Polycystic ovarian syndrome (principal)

== ENCOUNTER → 2017-04-22 | Outpatient (CLI) | payer OTHER ==
[~2017-04-22] MED LIST changes: +BUDE1CAP6 PO; -BUDE3CAP14 PO
[2017-04-22 13:25] LABS: MEAN CELL VOLUME 87.3 fL (80-100); MEAN CORPUSCULAR HEMOGLOBIN 29.3 pg (25-34); MEAN CORPUSCULAR HGB CONC 33.6 g/dl (32-36); MEAN PLATELET VOLUME 9.4 fL (7.4-10.4); PLATELET COUNT 325 K/uL (130-400); RED BLOOD COUNT 4.81 M/uL (4.2-5.4)
[2017-04-22 13:55] LABS: ESTIMATED AVERAGE GLUCOSE 108 mg/dl; HA1C FLAG Normal (Normal)
[2017-04-22 14:14] LABS: RUBELLA SCREEN IgG (AT CCH) IMMUNE (IMMUNE)
== END | disposition home or self-care (01) ==
LOC: C.LAB1850 11:25
PROVIDERS: ATTEND Obstetrics & Gynecology Reproductive Endocrinology
DX: Z31.41 Encounter for fertility testing (principal); Z01.83 Encounter for blood typing; E28.2 Polycystic ovarian syndrome; Z13.0 Encounter for screening for diseases of the blood and blood-forming organs and certain disorders involving the immune mechanism; Z13.21 Encounter for screening for nutritional disorder; Z11.59 Encounter for screening for other viral diseases; Z11.4 Encounter for screening for human immunodeficiency virus [HIV]

== ENCOUNTER → 2017-04-23 | Outpatient (CLI) | payer OTHER | END | disposition home or self-care (01) | LOC: C.LAB1850 12:30 | PROVIDERS: ATTEND Obstetrics & Gynecology Reproductive Endocrinology | DX: Z31.41 Encounter for fertility testing (principal); Z11.59 Encounter for screening for other viral diseases ==

== ENCOUNTER → 2017-04-29 | Outpatient (CLI) | payer OTHER ==
--- NOTE | 2017-04-29 14:18 | OPERATIVE REPORT ---
DATE OF OPERATION: 04/29/2017 PREOPERATIVE DIAGNOSES: Infertility. POSTOPERATIVE DIAGNOSIS: Same. PROCEDURE: Hysterosalpingogram. SURGEON: Emily Zambrano MD ANESTHESIA: None. ESTIMATED BLOOD LOSS: None. PROCEDURE: The patient was identified verbally and by bracelet it was confirmed that she was getting hysterosalpingogram. She is on cycle day 9. She was not prescribed preoperative antibiotics. The patient was placed into a frog leg position. The cervix was visualized using a speculum and was cleaned with Betadine. The anterior lip of the cervix was grasped with an Allis clamp. The dye was introduced into the uterus. The patient tolerated the procedure well and once satisfactory pictures were obtained, the procedure was terminated. All instruments were removed from the vagina. Hemostasis was noted to be excellent and patient was discharged in stable condition. I attest to the content of the Intraoperative Record and any orders documented therein. Any exception s are noted below.
--- NOTE | 2017-04-29 14:27 | DIAGNOSTIC IMAGING REPORT ---
HYSTEROSALPINGOGRAM CLINICAL HISTORY: Infertility testing. Polycystic ovarian syndrome. COMPARISON STUDY: Pelvic CT dated 11/25/2016. FINDINGS: Fluoroscopic assistance was provided to the roof technician in performing a hysterosalpingogram. The uterine cavity distends normally. No filling defects are identified. There is normal filling of the fallopian tubes, with free spillage of contrast into pelvis bilaterally. Fluoroscopy time: 0.1 minutes.. IMPRESSION: Unremarkable hysterosalpingogram. The fallopian tubes are patent bilaterally. Electronically signed by: Ankur Wiley M.D. 04/29/2017 2:26 PM Dictated Date/Time: 04/29/2017 2:25 PM
== END | disposition home or self-care (01) ==
LOC: C.RAD 09:07
PROVIDERS: ATTEND Obstetrics & Gynecology
DX: Z31.41 Encounter for fertility testing (principal)

== ENCOUNTER → 2017-05-14 | Outpatient (CLI) | payer OTHER | END | disposition home or self-care (01) | LOC: C.LAB1850 11:40 | PROVIDERS: ATTEND Obstetrics & Gynecology Reproductive Endocrinology | DX: Z31.41 Encounter for fertility testing (principal) ==

== ENCOUNTER → 2017-05-24 | Outpatient (CLI) | payer OTHER | END | disposition home or self-care (01) | LOC: C.LAB1850 10:40 | PROVIDERS: ATTEND Specialist | DX: Z31.41 Encounter for fertility testing (principal) ==

== ENCOUNTER → 2017-06-21 | Outpatient (CLI) | payer OTHER ==
[2017-06-21 10:23] LABS: LUTEINIZING HORMONE 14.02 IU/L
== END | disposition home or self-care (01) ==
LOC: C.LAB1850 09:17
PROVIDERS: ATTEND Specialist
DX: Z31.41 Encounter for fertility testing (principal)

== ENCOUNTER → 2017-06-23 | Outpatient (CLI) | payer OTHER ==
[2017-06-23 11:22] LABS: LUTEINIZING HORMONE 7.6 IU/L
== END | disposition home or self-care (01) ==
LOC: C.LAB1850 10:14
PROVIDERS: ATTEND Obstetrics & Gynecology Reproductive Endocrinology
DX: Z31.41 Encounter for fertility testing (principal)

== ENCOUNTER → 2017-07-09 | Outpatient (CLI) | payer OTHER | END | disposition home or self-care (01) | LOC: C.LAB1850 07:56 | PROVIDERS: ATTEND Obstetrics & Gynecology Reproductive Endocrinology | DX: O09.00 Supervision of pregnancy with history of infertility, unspecified trimester (principal) ==

== ENCOUNTER → 2017-07-14 | Outpatient (CLI) | payer OTHER | END | disposition home or self-care (01) | LOC: C.LAB1850 12:16 | PROVIDERS: ATTEND Obstetrics & Gynecology Reproductive Endocrinology | DX: Z31.41 Encounter for fertility testing (principal) ==

== ENCOUNTER → 2017-07-22 | Outpatient (CLI) | payer OTHER ==
[2017-07-22 12:38] LABS: LUTEINIZING HORMONE 8.89 IU/L
== END | disposition home or self-care (01) ==
LOC: C.LAB1850 11:13
PROVIDERS: ATTEND Obstetrics & Gynecology Reproductive Endocrinology
DX: E28.2 Polycystic ovarian syndrome (principal)

== ENCOUNTER → 2017-08-10 | Outpatient (CLI) | payer OTHER | END | disposition home or self-care (01) | LOC: C.LAB1850 12:27 | PROVIDERS: ATTEND Specialist | DX: Z32.00 Encounter for pregnancy test, result unknown (principal) ==

== ENCOUNTER → 2017-09-15 | Outpatient (CLI) | payer OTHER ==
[2017-09-15 15:36] LABS: LUTEINIZING HORMONE 11.17 IU/L
[2017-09-15 15:37] LABS: FOLLICLE STIMULAT HORMONE 9.5 IU/L
[2017-09-19 23:26] LABS: TESTOSTERONE,TOTAL 75 ng/dL (2-45); VARICELLA ZOS VIR IGM AB 0.95 (<=0.90)
== END | disposition home or self-care (01) ==
LOC: C.LAB1850 12:40
PROVIDERS: ATTEND Obstetrics & Gynecology
DX: Z31.49 Encounter for other procreative investigation and testing (principal)